=== PATIENT | male | born 1955 | race Caucasian/White ===

== ENCOUNTER 2020-12-23 09:12 | Outpatient (CLI) | payer MEDICARE, OTHER, SELFPAY ==
--- NOTE | 2020-12-23 09:23 | USCV_ITS ---
Dante Doshi Age: 65 Gender: M : 1955 Exam Date: 12/23/2020 09:37 Ordering Phys: Chrystal Chu MD Technologist: Deja Meza Exam Location: [facility] Indication: BILATERAL LOWER EXTREMITY EDEMA HISTORY: Lower extremity edema. PROCEDURES: Venous duplex imaging was performed in bilateral lower extremities. The following venous structures were evaluated: common femoral vein, profunda vein, proximal portion of the greater saphenous vein, superficial femoral vein, and the popliteal vein. In addition, the posterior tibial and peroneal trunk were evaluated. FINDINGS: Normal 2-D Doppler and augmentation and compressibility throughout the lower extremity venous structures. Additional imaging through the proximal calf veins also reveals no thrombus. Limited evaluation of the greater saphenous vein is patent with no thrombus.. CONCLUSIONS No evidence of right lower extremity DVT. No evidence of left lower extremity DVT. Attempted to contact providers office at time of exam multiple times with prelim, per request. Unable to establish contact due to prolonged hold times. Patient needed to leave and left department in stable condition., Oliverio Patterson MD (Electronically Signed) Final Date: 24 December 2020 09:56 S
== END 2020-12-23 09:13 | disposition home or self-care (01) ==
LOC: RAD 09:17
PROVIDERS: PCP Family Medicine; Visit Provider Internal Medicine Hematology & Oncology
DX: R60.0 Localized edema (principal)
CPT/HCPCS: 93970

== ENCOUNTER → 2022-07-18 13:09 | Outpatient (BNVA) | payer MEDICARE, OTHER, SELFPAY | PROVIDERS: PCP Family Medicine; Visit Provider Family Medicine | DX: I48.91 Unspecified atrial fibrillation (principal) | CPT/HCPCS: 80053; 84443; 85025 ==

== ENCOUNTER → 2022-09-14 11:02 | Outpatient (BNVA) | payer MEDICARE, OTHER, SELFPAY | PROVIDERS: PCP Family Medicine; Referring Provider Family Medicine; Visit Provider Anesthesiology Pain Medicine | DX: G89.29 Other chronic pain (principal); M54.50 Low back pain, unspecified; C61 Malignant neoplasm of prostate; M79.604 Pain in right leg; M79.605 Pain in left leg | CPT/HCPCS: 72110; 99204 ==

== ENCOUNTER 2022-10-11 14:37 | Outpatient (CLI) | payer MEDICARE, OTHER, SELFPAY ==
--- NOTE | 2022-10-11 15:15 | MR_ITS ---
WS: [id number] MRI LUMBAR SPINE WITH CONTRAST TECHNIQUE: Sagittal T1, T2 and STIR imaging. Axial T1 and T2 imaging. Post gadolinium imaging was obt ained. CLINICAL INFORMATION: M54.16 - Radiculopathy, lumbar region COMPARISON: None. FINDINGS: Mild lumbar curve. No acute compression. Disc space narrowing worse at L2-L3 with slight retrolisthes is L2 on L3. Focal sclerotic lesions in the L3 L4 and L5 vertebral bodies likely due to prior treated metastatic lesions. These are similar in appearance since the CT abdomen pelvis 2018. No significant associated edema or enhancement. These lesions could be further evaluated with bone scan to assess f or residual activity if suspicion for active disease. Recommend correlation PSA. L1-L2: Mild facet arthropathy. Spinal canal and foramen are patent. L2-L3: Disc osteophyte complex with endplate ridging. Moderate facet arthropathy. Moderate central ca nal stenosis with prominent epidural fat. Crowding of the cauda equina nerve rootlets. Mild to modera te facet arthropathy. RIGHT foraminal protrusion with moderate RIGHT foraminal narrowing. Impingement on the exiting RIGHT L2 nerve root. L3-L4: Mild disc bulging with mild central canal stenosis. Tiny annular fissure. L4-L5: Mild disc bulging with moderate canal stenosis. Moderate facet arthropathy. Prominent epidural fat contributes to thecal sac narrowing. Mild to moderate LEFT foraminal narrowing. RIGHT Foramen is patent. L5-S1: Mild annular bulging with osteophytic ridging. Mild LEFT foraminal narrowing. Moderate facet a rthropathy. Spinal canal is patent. Small LEFT facet effusion. Partially visualized LEFT renal cysts. MR/MR lumbar spine wo/w con [id number] IMPRESSION: 1. Mild disc bulging with osteophytic ridging L2-L3 results in moderate centra l canal stenosis with crowding of the cauda equina nerve rootlets. Prominent ep idural fat contributes to stenosis. 2. Moderate RIGHT L2-L3 foraminal narrowing impinges the exiting RIGHT L2 nerv e root. 3. Moderate central canal stenosis L4-L5 due to mild disc bulging in combinati on with facet arthropathy and prominent epidural fat. 4. Mild LEFT L4-L5 foraminal narrowing. 5. Moderate facet arthropathy worse at LEFT L5-S1 with small facet effusion. 6. Focal sclerotic nonenhancing lesions L3 L4 and L5 similar to the CT in 2018 . These likely represent prior treated metastatic blastic lesions. Bone scan co uld be performed in further evaluation if suspicion for active disease. Recomme nd correlation PSA.
[2022-10-11] MEDS: gadobenate dimeglumine 20 mL vial IV (15:41)
== END 2022-10-11 14:38 | disposition home or self-care (01) ==
PROVIDERS: PCP Family Medicine; Visit Provider Anesthesiology Pain Medicine
DX: M54.16 Radiculopathy, lumbar region (principal); M51.26 Other intervertebral disc displacement, lumbar region; M48.061 Spinal stenosis, lumbar region without neurogenic claudication; M47.817 Spondylosis without myelopathy or radiculopathy, lumbosacral region; G03.9 Meningitis, unspecified
CPT/HCPCS: 72158; A9577

== ENCOUNTER → 2022-11-14 08:56 | Outpatient (BNVA) | payer MEDICARE, OTHER, SELFPAY | PROVIDERS: PCP Family Medicine; Visit Provider Anesthesiology Pain Medicine | DX: G89.29 Other chronic pain (principal); M54.50 Low back pain, unspecified; C61 Malignant neoplasm of prostate | CPT/HCPCS: 99214 ==

== ENCOUNTER → 2022-11-29 11:48 | Outpatient (BNVA) | payer MEDICARE, OTHER, SELFPAY | PROVIDERS: PCP Family Medicine; Visit Provider Family Medicine | DX: I48.91 Unspecified atrial fibrillation (principal); C61 Malignant neoplasm of prostate; M54.50 Low back pain, unspecified; G89.29 Other chronic pain; I10 Essential (primary) hypertension | CPT/HCPCS: 80053; 85025 ==

== ENCOUNTER → 2022-12-15 08:32 | Outpatient (BNVA) | payer MEDICARE, OTHER, SELFPAY | PROVIDERS: PCP Family Medicine; Visit Provider Anesthesiology Pain Medicine | DX: G89.29 Other chronic pain (principal); M54.50 Low back pain, unspecified; C61 Malignant neoplasm of prostate | CPT/HCPCS: 99214 ==

== ENCOUNTER → 2023-01-03 13:41 | Outpatient (BNVA) | payer MEDICARE, OTHER, SELFPAY | PROVIDERS: PCP Family Medicine; Visit Provider Anesthesiology Pain Medicine | DX: G89.29 Other chronic pain (principal); M47.816 Spondylosis without myelopathy or radiculopathy, lumbar region | CPT/HCPCS: 64493; 64494; 64495; J3490 ==

== ENCOUNTER → 2023-01-16 13:37 | Outpatient (BNVA) | payer MEDICARE, OTHER, SELFPAY | PROVIDERS: PCP Family Medicine; Visit Provider Family Medicine | DX: R60.9 Edema, unspecified (principal); I10 Essential (primary) hypertension | CPT/HCPCS: 80048 ==

== ENCOUNTER 2023-01-23 07:43 | Outpatient (CLI) | payer MEDICARE, OTHER, SELFPAY ==
--- NOTE | 2023-01-23 08:00 | USCV_ITS ---
Dante Doshi Age: 67 Gender: M : 1955 Exam Date: 01/23/2023 08:04 Ordering Phys: Tony Shine MD Technologist: Jacob Delgado [place] [facility] [place]: edema BP: 112 / 86 HR: 93 Rhythm: Other Technical Quality: Adequate MEASUREMENTS (Male / Female) Normal Values 2D ECHO LV Ejection Fraction MOD 2C 77.6 % LV Ejection Fraction 2C AL 77.6 % LA Diameter 4.0 cm LA Width 3.2 cm LA Height 4.9 cm RA Width 4.2 cm RA Height 5.3 cm Aorta at Sinotubular Diameter 2.3 cm IVC Diameter 1.9 cm M-MODE Aortic Annulus Diameter 2.5 cm LA Ao Ratio MM 1.6 MV E Point Septal Separation 0.6 cm DOPPLER AV Peak Velocity 102.0 cm/s LVOT Peak Velocity 98.0 cm/s MV Peak Velocity 135.0 cm/s MV Area PHT 7.9 cm squared MV E' Velocity 59.5 cm/s Mitral E to MV E' Ratio 7.8 Mitral E to LV E' Lateral Ratio 8.8 Mitral E to LV E' Septal Ratio 7.0 TR Peak Velocity 202.1 cm/s TR Peak Gradient 16.3 mmHg TR Mean Velocity 158.5 cm/s TR Mean Gradient 11.6 mmHg TR Velocity Time Integral 47.4 cm Right Atrial Pressure 3.0 mmHg Pulmonary Artery Systolic Pressu 19.3 mmHg PV Peak Velocity 73.0 cm/s RV Acceleration Time 0.1 s RV Ejection Time 0.2 s RV AcT/ET 0.4 FINDINGS Left Ventricle Normal left ventricular size, systolic function and wall thickness, with no regional wall motion abnormalities. Left ventricular ejection fraction is estimated at 60 %. Rhythm precludes evaluation of diastolic function. Right Ventricle Normal right ventricular size and systolic function. Right ventricular systolic pressure 47 mmHg. Right Atrium Normal right atrial size. Left Atrium Mildly increased left atrial size. Mitral Valve Thickened mitral valve. Moderate mitral annular calcification. No mitral valve stenosis. No mitral valve regurgitation. Aortic Valve Aortic valve not well visualized. No aortic valve stenosis. No aortic valve regurgitation. Tricuspid Valve Structurally normal tricuspid valve. No tricuspid valve stenosis. Trace tricuspid valve regurgitation. Pulmonic Valve Pulmonic valve not well visualized. No pulmonary valve stenosis. Trace pulmonary valve regurgitation. Pericardium No pericardial effusion. Aorta Normal size aortic root and proximal ascending aorta. IVC Normal IVC dimension with >50% respiratory change of the inferior vena cava. CONCLUSIONS 1. Normal left ventricular size, systolic function and wall thickness, with no regional wall motion abnormalities. Left ventricular ejection fraction is estimated at 60 %. 2. Mild pulmonary hypertension with pulmonary artery pressure estimated at 47 mm Hg. 3. No prior similar studies to compare. Debbie Mondragon MD (Electronically Signed) Final Date: 27 January 2023 20:32 S
== END 2023-01-23 07:44 | disposition home or self-care (01) ==
PROVIDERS: PCP Family Medicine; Visit Provider Family Medicine
DX: I27.20 Pulmonary hypertension, unspecified (principal); R60.9 Edema, unspecified; I10 Essential (primary) hypertension; I48.91 Unspecified atrial fibrillation
CPT/HCPCS: 93306

== ENCOUNTER → 2023-01-31 12:31 | Outpatient (BNVA) | payer MEDICARE, OTHER, SELFPAY | PROVIDERS: PCP Family Medicine; Visit Provider Anesthesiology Pain Medicine | DX: G89.29 Other chronic pain (principal); M47.816 Spondylosis without myelopathy or radiculopathy, lumbar region | CPT/HCPCS: 64493; 64494; 64495; J3490 ==

== ENCOUNTER → 2023-02-21 08:24 | Outpatient (BNVA) | payer MEDICARE, OTHER, SELFPAY | PROVIDERS: PCP Family Medicine; Visit Provider Anesthesiology Pain Medicine | DX: G89.29 Other chronic pain; R60.9 Edema, unspecified; M48.061 Spinal stenosis, lumbar region without neurogenic claudication; M47.817 Spondylosis without myelopathy or radiculopathy, lumbosacral region | CPT/HCPCS: 99214 ==

== ENCOUNTER → 2023-03-09 13:13 | Outpatient (BNVA) | payer MEDICARE, OTHER, SELFPAY | PROVIDERS: PCP Family Medicine; Visit Provider Anesthesiology Pain Medicine | DX: M47.816 Spondylosis without myelopathy or radiculopathy, lumbar region (principal); G89.29 Other chronic pain | CPT/HCPCS: 64635; 64636; J1030 ==

== ENCOUNTER → 2023-04-19 13:27 | Outpatient (BNVA) | payer MEDICARE, OTHER, SELFPAY | PROVIDERS: PCP Family Medicine; Visit Provider Anesthesiology Pain Medicine | DX: M48.061 Spinal stenosis, lumbar region without neurogenic claudication (principal); G89.29 Other chronic pain; M47.817 Spondylosis without myelopathy or radiculopathy, lumbosacral region | CPT/HCPCS: 99214 ==

== ENCOUNTER → 2023-05-02 12:45 | Outpatient (BNVA) | payer MEDICARE, OTHER, SELFPAY | PROVIDERS: PCP Family Medicine; Visit Provider Anesthesiology Pain Medicine | DX: G89.29 Other chronic pain; M54.16 Radiculopathy, lumbar region | CPT/HCPCS: 62323; J1030 ==

== ENCOUNTER → 2023-05-11 10:40 | Outpatient (BNVA) | payer MEDICARE, OTHER, SELFPAY | PROVIDERS: PCP Family Medicine; Referring Provider Anesthesiology Pain Medicine; Visit Provider Orthopaedic Surgery | DX: M54.50 Low back pain, unspecified (principal); G89.29 Other chronic pain | CPT/HCPCS: 99204 ==

== ENCOUNTER → 2023-05-16 09:46 | Outpatient (BNVA) | payer MEDICARE, OTHER, SELFPAY | PROVIDERS: Visit Provider Anesthesiology Pain Medicine | DX: G89.29 Other chronic pain; R60.9 Edema, unspecified; M48.061 Spinal stenosis, lumbar region without neurogenic claudication; M47.817 Spondylosis without myelopathy or radiculopathy, lumbosacral region | CPT/HCPCS: 99214 ==

== ENCOUNTER 2023-05-25 08:13 | Outpatient (RCR) | payer MEDICARE, OTHER, SELFPAY | END 2023-06-08 23:59 | disposition home or self-care (01) | LOC: SPT 08:13 | PROVIDERS: PCP Family Medicine; Visit Provider Orthopaedic Surgery | DX: M54.50 Low back pain, unspecified (principal) | CPT/HCPCS: 97110; 97161 ==

== ENCOUNTER 2023-06-13 10:55 | Outpatient (RCR) | payer MEDICARE, OTHER, SELFPAY | END 2023-07-09 23:59 | disposition home or self-care (01) | LOC: SPT 10:55 | PROVIDERS: PCP Family Medicine; Visit Provider Orthopaedic Surgery | DX: M54.50 Low back pain, unspecified (principal) | CPT/HCPCS: 97110 ==

== ENCOUNTER → 2023-06-15 10:58 | Outpatient (BNVA) | payer MEDICARE, OTHER, SELFPAY | PROVIDERS: PCP Family Medicine; Visit Provider Anesthesiology Pain Medicine | DX: G89.29 Other chronic pain; M48.061 Spinal stenosis, lumbar region without neurogenic claudication; M47.817 Spondylosis without myelopathy or radiculopathy, lumbosacral region | CPT/HCPCS: 99214 ==

== ENCOUNTER → 2023-06-21 09:00 | Outpatient (BNVA) | payer MEDICARE, OTHER, SELFPAY | PROVIDERS: PCP Family Medicine; Visit Provider Physician Assistant | DX: M47.816 Spondylosis without myelopathy or radiculopathy, lumbar region (principal); M48.061 Spinal stenosis, lumbar region without neurogenic claudication | CPT/HCPCS: 72100; 99204 ==

== ENCOUNTER → 2023-09-11 13:52 | Outpatient (BNVA) | payer MEDICARE, OTHER, SELFPAY | PROVIDERS: PCP Family Medicine; Visit Provider Anesthesiology Pain Medicine | DX: G89.29 Other chronic pain; R60.9 Edema, unspecified; M48.061 Spinal stenosis, lumbar region without neurogenic claudication; M47.817 Spondylosis without myelopathy or radiculopathy, lumbosacral region | CPT/HCPCS: 99214 ==

== ENCOUNTER → 2023-09-28 14:24 | Outpatient (BNVA) | payer MEDICARE, OTHER, SELFPAY | PROVIDERS: PCP Family Medicine; Visit Provider Anesthesiology Pain Medicine | DX: M47.816 Spondylosis without myelopathy or radiculopathy, lumbar region (principal); G89.29 Other chronic pain | CPT/HCPCS: 64493; 64494; 64495; J3490 ==

== ENCOUNTER 2023-10-09 16:11 | Outpatient (CLI) | payer MEDICARE, OTHER, SELFPAY ==
--- NOTE | 2023-10-09 16:22 | XR_ITS ---
WS: [email or web address] Examination: [place] [id number] Reason for Exam: rt shoulder pain Date: 10/09/2023 Comparison: None. Findings: I see no destruction or displaced fracture of the right clavicle. Impression: No displaced fracture of the right clavicle is appreciated.
--- NOTE | 2023-10-09 16:22 | XR_ITS ---
WS: [email or web address] Examination: XR shoulder RT min 2V* [id number] Reason for Exam: rt shoulder pain Date: October 09, 2023 Comparison: None. Findings: The glenohumeral joint is intact without dislocation. No displaced fracture is identified. Mild AC joint degenerative changes are present. Impression: No acute bony abnormalities identified.
== END 2023-10-09 16:12 | disposition home or self-care (01) ==
LOC: RAD 16:14
PROVIDERS: PCP Family Medicine; Visit Provider Family Medicine
DX: M25.511 Pain in right shoulder (principal)
CPT/HCPCS: 73000; 73030

== ENCOUNTER → 2023-10-24 09:37 | Outpatient (BNVA) | payer MEDICARE, OTHER, SELFPAY | PROVIDERS: PCP Family Medicine; Visit Provider Anesthesiology Pain Medicine | DX: S43.109A Unspecified dislocation of unspecified acromioclavicular joint, initial encounter (principal); G89.29 Other chronic pain; R60.9 Edema, unspecified; M48.061 Spinal stenosis, lumbar region without neurogenic claudication; M47.817 Spondylosis without myelopathy or radiculopathy, lumbosacral region; X58.XXXA Exposure to other specified factors, initial encounter | CPT/HCPCS: 99215 ==

== ENCOUNTER 2023-11-06 10:41 | Outpatient (CLI) | payer MEDICARE, OTHER, SELFPAY ==
--- NOTE | 2023-11-06 11:00 | CT_ITS ---
WS: [id number] CT chest w con* [id number] HISTORY: S43.109A - Unspecified dislocation of unspecified acromio... TECHNIQUE: Axial imaging performed through the thorax. Coronal and sagittal reformats are submitted. All CT scans at [facility] use at least one of these dose optimization techniques: automated exposure control; mA and/or kV adjustment per patient size (includes targeted exams where dose is mat ched to clinical indication); or iterative reconstruction. CONTRAST: Omnipaque 350; 100 mL IV. DLP: 724.92 mGy.cm COMPARISON: None available. Lungs and central airway: Mild dependent changes in the lower lung kemp and in the lingula. Benign granuloma LEFT upper lobe. No mass or pneumonia. Pleura: Normal. No pleural effusion. Heart and pericardium: Mild cardiomegaly. No pericardial effusion. Coronary artery calcification. Mediastinum and dodie: Small mediastinal and hilar lymph nodes. Lymph nodes do not fit criteria for ad enopathy. Diffuse mild esophageal wall circumferential thickening beginning at the level of the fatmata a. No obstruction. No mass identified. Vessels: Atherosclerosis aorta. Normal size pulmonary artery. Chest wall and lower neck: Marker placed in the RIGHT supraclavicular region in the area of pain and nodularity. Acute, nonhealed fracture involving the RIGHT clavicular head with mild displacement. No adjacent hematoma. No sternal fracture. No rib fracture. Upper abdomen: Mild nodularity LEFT adrenal gland. Nodule measures 1.5 cm. Slightly increased in size since 2018. Osseous structures: RIGHT scoliosis thoracic spine. CT/CT chest w con* [id number] IMPRESSION: 1. Palpable area along the inferior RIGHT neck corresponds to a nonhealed, mi nimally displaced RIGHT clavicular head fracture. 2. No adjacent rib fractures. 3. Mild circumferential esophageal thickening beginning at the level of the ca jim. No mass identified. Suspect esophagitis. 4. No pneumonia.
[2023-11-06 11:28] LABS: Blood Urea Nitrogen 18 mg/dL (8-23); Glomerular Filtration Rate 83.4 mL/min (90-130)
[2023-11-06] MEDS: iohexol 350 mg/mL 500 mL Btl (per mL) IV (11:33)
== END 2023-11-06 10:42 | disposition home or self-care (01) ==
LOC: RAD 10:42
PROVIDERS: PCP Family Medicine; Visit Provider Anesthesiology Pain Medicine
DX: S43.101A Unspecified dislocation of right acromioclavicular joint, initial encounter (principal); S42.011A Anterior displaced fracture of sternal end of right clavicle, initial encounter for closed fracture; X58.XXXA Exposure to other specified factors, initial encounter
CPT/HCPCS: 71260; 82565; 84520; Q9967

== ENCOUNTER → 2023-11-08 12:40 | Outpatient (BNVA) | payer MEDICARE, OTHER, SELFPAY | PROVIDERS: PCP Family Medicine; Visit Provider Anesthesiology Pain Medicine | DX: M47.816 Spondylosis without myelopathy or radiculopathy, lumbar region (principal); G89.29 Other chronic pain; R60.9 Edema, unspecified; M48.061 Spinal stenosis, lumbar region without neurogenic claudication; C61 Malignant neoplasm of prostate | CPT/HCPCS: 64635; 64636; 99214; J1010 ==

== ENCOUNTER → 2023-11-14 14:22 | Outpatient (BNVA) | payer MEDICARE, OTHER, SELFPAY | PROVIDERS: PCP Family Medicine; Visit Provider Orthopaedic Surgery | DX: S42.017A Nondisplaced fracture of sternal end of right clavicle, initial encounter for closed fracture (principal); X58.XXXA Exposure to other specified factors, initial encounter | CPT/HCPCS: 99203 ==

== ENCOUNTER → 2023-12-05 08:49 | Outpatient (BNVA) | payer MEDICARE, OTHER, SELFPAY | PROVIDERS: PCP Family Medicine; Visit Provider Anesthesiology Pain Medicine | DX: G89.29 Other chronic pain; R60.9 Edema, unspecified; M48.061 Spinal stenosis, lumbar region without neurogenic claudication; M47.816 Spondylosis without myelopathy or radiculopathy, lumbar region; M47.817 Spondylosis without myelopathy or radiculopathy, lumbosacral region | CPT/HCPCS: 99214 ==

== ENCOUNTER → 2023-12-26 12:58 | Outpatient (BNVA) | payer MEDICARE, OTHER, SELFPAY | PROVIDERS: PCP Family Medicine; Visit Provider Orthopaedic Surgery | DX: S42.017A Nondisplaced fracture of sternal end of right clavicle, initial encounter for closed fracture (principal); X58.XXXA Exposure to other specified factors, initial encounter | CPT/HCPCS: 73000; 99214 ==

== ENCOUNTER 2024-02-12 13:34 | Inpatient (IN) | payer MEDICARE, OTHER, SELFPAY ==
[2024-02-12] VITALS (21 sets, daily range): BP systolic 96–136; BP diastolic 46–107; PULSE 85–141; RESP 16–28; TEMP 36.6; O2SAT 76–95; BMI 33.3
--- NOTE | 2024-02-12 14:38 | CT_ITS ---
WS: [id number] CT CHEST, ABDOMEN AND PELVIS WITH CONTRAST HISTORY: TRAUMA TECHNIQUE: Contiguous 5 mm axial imaging performed through the chest, abdomen and pelvis with IV cont rast, oral contrast has not been provided. Coronal and sagittal reformats chest. Coronal and sagittal reformats through the abdomen and pelvis. All CT scans at [facility] use at least one of the se dose optimization techniques: automated exposure control; mA and/or kV adjustment per patient size (includes targeted exams where dose is matched to clinical indication); or iterative reconstruction. CONTRAST: Omnipaque 350; 100 mL IV. DLP: 1750.08 mGy.cm COMPARISON: 11/06/2023 Significant artifact through the chest and abdomen due to patient's arm placement. Chest CT: Mild breathing motion artifact. No pulmonary contusion or laceration. No pneumothorax. Mild dependent changes in the lower lung kemp. No pericardial or pleural effusions. Mild biatrial enlar gement. No mediastinal or hilar adenopathy. Thoracic aorta with mild atherosclerosis. No aortic injur y. Normal size pulmonary artery. Small hiatal hernia. No visible chest wall contusion or hematoma. Co ntinued changes in the head of the RIGHT clavicle which was seen on 11/06/2023 thought to be a fractur e. Nondisplaced RIGHT lateral sixth rib fracture. Abdomen CT: Significant artifact through the upper abdomen. Liver appears intact. Spleen appears inta ct although there is artifact. Negative gallbladder. Negative pancreas. Normal RIGHT adrenal gland. S table 12 mm nodule LEFT adrenal gland. Indeterminate for mass in the LEFT kidney measuring 2.2 cm. Th ere is an additional smaller similar mass in the LEFT kidney. Atherosclerosis aorta. No aneurysm. No mesenteric injury. No GI tract obstruction or wall thickening. Pelvic CT: No free fluid. Normally distended urinary bladder. No adenopathy. Advanced degenerative ch anges in the thoracic and lumbar spines. Scoliosis. No fractures. CT/CT chest abdpel w/*[id number] IMPRESSION: 1. No thoracic or abdominal aortic injury. 2. No pneumothorax or pulmonary contusion. 3. Quality of study is compromised by motion artifact and artifact from the pa tient's arm position. 4. Nondisplaced RIGHT lateral acute sixth rib fracture. 5. No mesenteric injury. 6. No visceral organ injury identified taking into consideration the amount of artifact. 7. Reidentified is a destructive changes involving the head of the RIGHT clavi josue which were described on 11/06/2023. Thought to be healing fracture. There peck s been progression of destruction therefore the possibility of chronic osteomye litis or sternoclavicular joint arthropathy should also be considered. 8. Indeterminate LEFT renal masses. The largest at 2.2 cm. These may be cysts or solid masses. This can be further evaluated by ultrasound after patient's in jury from the recent trauma resolves.
--- NOTE | 2024-02-12 14:38 | ECG_ITS ---
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 Measurements Intervals [place] Rate: 107 P: 0 DC: 0 QRS: 31 QRSD: 81 T: 64 QT: 347 QTc: 464 Interpretive Statements ATRIAL FIBRILLATION WITH RAPID VENTRICULAR RESPONSE No previous ECG available for comparison Electronically Signed On 02-13-2024 7:51:38 CDT by Eleno Stapleton M.D. [id number] f
--- NOTE | 2024-02-12 14:38 | CT_ITS ---
WS: [id number] CT CERVICAL SPINE HISTORY: TRAUMA TECHNIQUE: Contiguous 2.0 mm axial imaging performed through the entire cervical spine. Sagittal and coronal reformats also performed. All CT scans at [facility] use at least one of these dose o ptimization techniques: automated exposure control; mA and/or kV adjustment per patient size (include s targeted exams where dose is matched to clinical indication); or iterative reconstruction. DLP: 2596.38 mGy.cm COMPARISON: None available. Reversal of the normal cervical lordosis centered at C4. Disc spaces are well narrowed and desiccated . Craniocervical junction is normal. Facet joints are normally aligned. Lateral masses of C1 and C2 a re aligned. The odontoid is intact. Bones are osteopenic. Bilateral facet joint arthropathy and foraminal narrowing. No central stenosis. Mild to moderate fora rom stenosis throughout the cervical spine. CT/CT cervical spin wo con* [id number] IMPRESSION: 1. No acute cervical spine fracture. 2. Degenerative facet joint arthropathy and foraminal stenosis at multiple lev els.
--- NOTE | 2024-02-12 14:38 | CT_ITS ---
WS: [id number] CT HEAD NONCONTRAST HISTORY: TRAUMA TECHNIQUE: Contiguous axial imaging performed through the brain in 2.5 mm imaging. Bone and soft tiss ue windows. Sagittal and coronal reformats reviewed. All CT scans at [facility] use at least one of these dose optimization techniques: automated exposure control; mA and/or kV adjustment per pa tient size (includes targeted exams where dose is matched to clinical indication); or iterative recon struction. DLP: 2596.38 mGy.cm COMPARISON: None available. No acute intracranial hemorrhage, midline shift or mass effect. Mild atrophy and mild small vessel disease. Prior LEFT cerebellar infarct. There is now volume loss. Ventricles: Normal size with no hydrocephalus. Paranasal sinuses: As visualized are clear. Mastoid air cells: Well pneumatized. Calvarium and scalp: No skull fracture. Possible nasal bone fracture. Mild soft tissue contusion over the LEFT frontal bone. Additional contusion continues over the LEFT orbit and globe. CT/CT head wo con* [id number] IMPRESSION: 1. No acute intracranial hemorrhage or edema. 2. Mild atrophy and small vessel ischemic disease. 3. Remote LEFT cerebellar infarct. 4. Soft tissue contusion over the LEFT frontal bone and orbit. Possible nasal bone fracture. Facial bone CT to follow.
--- NOTE | 2024-02-12 14:38 | XRR_ITS ---
PROCEDURE INFORMATION: Exam: XR Chest Exam date and time: 02/12/2024 2:39 PM Age: 68 years old Clinical indication: Cough and dyspnea; Additional info: Dyspnea/cough TECHNIQUE: Imaging protocol: Radiologic exam of the chest. Views: 1 view. COMPARISON: CT chest w con* [id number] 11/06/2023 11:29 AM FINDINGS: Lungs: Left lower lobe infiltrate. Pleural spaces: Unremarkable. No pleural effusion. No pneumothorax. Heart/Mediastinum: Unremarkable. No cardiomegaly. Bones/joints: Unremarkable. XR/XR chest 1V portable [id number] IMPRESSION: Left lower lobe infiltrate.
[2024-02-12 15:04] LABS: ABG PCO2 55.6 mmHg (35-45); ABG PH Result 7.38 (7.35-7.45); Alveolar-Arterial Oxygen Gradi 22.6 mmHg (5-10); Arterial Blood Gas Hematocrit 47.9 % (42-52); Base Excess ABG 5.5 mmol/L (-2.0-2.0); Blood Gas Operator Identificat AMH; Blood Gas Sample Site Radial, left; Blood Gas Sample Type Arterial; Carboxyhemoglobin 4.5 %THgb (0.4-20.1); HCO3 ABG 32.5 mmol/L (22-26); HGB O2 Sat 89.6 % (95-100); Ionized Calcium Level - ABG 1.2 mmol/L (1.1-1.4); Oxygen Device NC; Oxygen Saturation ABG 93.8; PO2 ABG 72.8 mmHg (80.0-100.0); PO2 FiO2 Ratio Arterial Blood 165; Total Hemoglobin 15.6 g/dL (14-18)
[2024-02-12 15:04] LABS: Basophils % 0.2 %; Eosinophils % 0.2 %; Hematocrit 49.2 % (37-53); Mean Corpuscular HGB Conc 32.5 g/dL (30-55); Mean Corpuscular Hemoglobin 32.3 pg (27-33); Mean Corpuscular Volume 99.4 fl (82-101); Mean Platelet Volume 10.3 fL (7.4-10.4); Monocytes # 0.9 10^3/uL (0.2-0.9); Monocytes % 9.5 %; Neutrophils # 7.48 10^3/uL (1.8-7.7); Neutrophils % 78.9 %; Nucleated Red Blood Cells % 0 %; Platelet Count 227 10^3/cmm (157-399); Red Blood Count 4.95 10^6/uL (3.85-5.65); Red Cell Distribution Width 14.4 % (12.1-15.1); White Blood Count 9.48 10^3/uL (3.29-11.43)
--- NOTE | 2024-02-12 15:04 | CT_ITS ---
WS: [id number] CT FACIAL BONES HISTORY: trauma TECHNIQUE: Images obtained from the supraorbital location through the mandible. Soft tissue and bone windows are reviewed. Coronal and sagittal reformats have also been submitted. DLP: 2596.[address] scans at [facility] use at least one of these dose optimization techniques: automated e xposure control; mA and/or kV adjustment per patient size (includes targeted exams where dose is matc hed to clinical indication); or iterative reconstruction. COMPARISON: None available. Motion artifact. Minimally displaced bilateral nasal bone fractures. Zygomatic arches are intact. No air-fluid levels within the sinuses. Mandibular condyles remain intact. Mild soft tissue contusion centered over the R IGHT frontal bone over the orbit and globe and the nasal bones. Upper cervical spine is negative. There are degenerative changes with reversal of the normal curvatur e. Craniocervical junction appears appropriate. CT/CT facial bones wo con* [id number] IMPRESSION: 1. Bilateral nasal bone fractures. 2. No zygomatic fracture. 3. Soft tissue contusions centered over the LEFT frontal bone continuing over the LEFT orbit and globe.
[2024-02-12 15:21] LABS: Alanine Aminotransferase 13 U/L (0-41); Albumin Level 3.8 g/dL (3.5-5.2); Alkaline Phosphatase 111 U/L (40-130); Anion Gap 15.6 (5-19); Aspartate Amino Transferase 23 U/L (0-40); Blood Urea Nitrogen 17 mg/dL (8-23); Calcium 9.2 mg/dL (8.5-10.5); Carbon Dioxide 30 mmol/L (22-29); Chloride 93 mmol/L (98-107); Globulin 3.6 g/dL (1.3-4.6); Glomerular Filtration Rate 133.2 mL/min (90-130); Glucose 131 mg/dL (65-115); Osmolality Calculated 281 mOsm/kg (285-295); Potassium 4.6 mmol/L (3.5-5.1); Sodium 134 mmol/L (136-145); Total Bilirubin 0.7 mg/dL (0.15-1.2); Total Protein 7.4 g/dL (6.6-8.7)
[2024-02-12] MEDS: iohexol 350 mg/mL 500 mL Btl (per mL) IV ×2 (15:24→16:52)
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
--- NOTE | 2024-02-12 16:17 | ECG_ITS ---
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 Measurements Intervals [place] Rate: 105 P: 0 TX: 0 QRS: 16 QRSD: 82 T: 60 QT: 351 QTc: 465 Interpretive Statements ATRIAL FIBRILLATION WITH RAPID VENTRICULAR RESPONSE Compared to ECG 02/12/2024 14:39:43 No significant changes Electronically Signed On 02-13-2024 7:51:27 CDT by Eleno Stapleton M.D. [id number] f
[2024-02-12] MEDS: ondansetron 2 mg/ML SDV 2 mL 4 MG IVP (16:20)
[2024-02-12] MEDS: morphine 4 mg/mL SDV 1 mL IVP (16:21)
--- NOTE | 2024-02-12 16:25 | CTR_ITS ---
PROCEDURE INFORMATION: Exam: CTA Chest With Contrast Exam date and time: 02/12/2024 4:38 PM Age: 68 years old Clinical indication: Dyspnea; Additional info: Dyspnea/ tachycardia TECHNIQUE: Imaging protocol: Computed tomographic angiography of the chest with contrast. Exam focused on the arteries. 3D rendering (Not supervised by radiologist): MIP and/or 3D reconstructed images were created by the technologist. Radiation optimization: All CT scans at this facility use at least one of these dose optimization techniques: automated exposure control; mA and/or kV adjustment per patient size (includes targeted exams where dose is matched to clinical indication); or iterative reconstruction. Contrast material: OMNI 350; Contrast volume: 82 ml; Contrast route: INTRAVENOUS (IV); COMPARISON: CT chest abdpel w/*[id number] 02/12/2024 3:18 PM RADIATION DOSE METRICS: Total DLP (mGy-cm): 497 FINDINGS: Pulmonary arteries: Normal. No pulmonary emboli. Aorta: Unremarkable. No aortic aneurysm. No aortic dissection. Lungs: Focal lingular infiltrate. Pleural spaces: Unremarkable. No pneumothorax. No pleural effusion. Heart: Unremarkable. No cardiomegaly. No pericardial effusion. Coronary arteries: Coronary artery calcifications. Lymph nodes: Minimal prominence of mediastinal lymph nodes. Spleen: Calcified splenic granulomata. Kidneys and ureters: Cystic lesions in the left kidney which is not warrant further surveillance. Bones/joints: Degenerative changes in the thoracic spine. [place] rightward upper thoracic scoliosis. Soft tissues: Unremarkable. CT/CT angio chest PE protcl [id number] IMPRESSION: No evidence for pulmonary arterial embolism. Focal lingular infiltrate. COMMENTS: Consistent with the [place] [employer]'s Incidental Findings Committee white paper (J Am Daniel Radiol 2018): Any incidental renal lesion less than 1 cm or classified as too small to characterize, or any incidental cystic renal lesion characterized as simple-appearing, is likely benign. No follow-up imaging is recommended for these lesions per consensus recommendations based on imaging criteria.
--- NOTE | 2024-02-12 17:00 | ECG_ITS ---
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 Measurements Intervals [place] Rate: 137 P: 0 OR: 0 QRS: 11 QRSD: 86 T: 58 QT: 303 QTc: 459 Interpretive Statements ATRIAL FIBRILLATION WITH RAPID VENTRICULAR RESPONSE MINIMAL ST DEPRESSION [0.025+ mV ST DEPRESSION] Compared to ECG 02/12/2024 16:17:39 ST (T wave) deviation now present Electronically Signed On 02-13-2024 7:50:52 CDT by Eleno Stapleton M.D. [id number]
[2024-02-12 17:32] LABS: Troponin(5th) Baseline 11 ng/L (0-15)
[2024-02-12] MEDS: methylPREDNISolone sod succ 125 mg/2 mL INJ IVP (17:34)
[2024-02-12] MEDS: dilTIAZem 100 MG in sodium chloride 0.9% (add-van) 100 ML IV (17:34)
[2024-02-12 17:44] LABS: ABG PH Result 7.28 (7.35-7.45); Alveolar-Arterial Oxygen Gradi 2.2 mmHg (5-10); Arterial Blood Gas Hematocrit 48.6 % (42-52); Blood Gas Allen Test Pos; Blood Gas Operator Identificat CAK; Blood Gas Sample Site Radial, left; Blood Gas Sample Type Arterial; HCO3 ABG 33.5 mmol/L (22-26); HGB O2 Sat 72.3 % (95-100); Ionized Calcium Level - ABG 1.2 mmol/L (1.1-1.4); Methemoglobin 0.1 % (0.4-1.5); Oxygen Device NC; Oxygen Saturation ABG 75.4; PO2 ABG 48.2 mmHg (80.0-100.0); Potassium Level - ABG 4.5 mmol/L (3.5-5.0); Total Hemoglobin 15.9 g/dL (14-18)
[2024-02-12 17:45] LABS: ABG PCO2 70.9 mmHg (35-45)
[2024-02-12] MEDS: ipratropium-albuterol 3 mL Neb INHALATION ×2 (17:45→20:07)
[2024-02-12 17:47] LABS: Troponin 5 2HR 11.96 ng/L (0-15); Troponin 5 2HR Delta 0.96 ABS# (0-10)
[2024-02-12 17:56] LABS: NT Pro B Type Natriuretic Pept 1482 pg/mL (0-125)
[2024-02-12] MEDS: cefTRIAXone 1,000 mg SDV 1000 MG IVP (18:05)
[2024-02-12] MEDS: azithromycin 500 MG in sodium chloride 0.9% 250 ML 250 MG IV (18:07)
[2024-02-12 18:21] LABS: Lactic Sepsis W/Reflex 1.6 mmol/L (0.5-2.2)
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
--- NOTE | 2024-02-12 19:00 | ECG_ITS ---
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 Measurements Intervals [place] Rate: 95 P: 0 MO: 0 QRS: 11 QRSD: 87 T: 55 QT: 364 QTc: 460 Interpretive Statements ATRIAL FIBRILLATION Compared to ECG 02/12/2024 17:07:30 ST (T wave) deviation no longer present Electronically Signed On 02-13-2024 7:53:26 CDT by Eleno Stapleton M.D. [id number]
[2024-02-12] MEDS: FUROsemide 10 mg/mL SDV 2mL 20 MG IVP (20:14)
[2024-02-12] MEDS: digoxin 250 mcg/ml INJ 2 mL 500 MCG IVP (20:14)
[2024-02-12 20:32] LABS: ABG PH Result 7.24 (7.35-7.45); Arterial Blood Gas Hematocrit 47.6 % (42-52); Base Excess ABG 2.7 mmol/L (-2.0-2.0); Blood Gas Allen Test Pos; Blood Gas Sample Site Radial, right; Blood Gas Sample Type Arterial; PO2 ABG 69.8 mmHg (80.0-100.0)
[2024-02-12 20:33] LABS: Blood Gas Operator Identificat JB; Oxygen Device BIPAP; PO2 FiO2 Ratio Arterial Blood 126
[2024-02-12 20:35] LABS: ABG PCO2 77.4 mmHg (35-45)
[2024-02-12 21:03] LABS: Troponin 5 6HR 11.33 ng/L (0-15); Troponin 5 6HR Delta 0.33 ng/L (0-12)
[2024-02-12 21:22] LABS: Thyroid Stimulating Hormone 1.67 uIU/mL (0.27-4.20); Vitamin B12 300 pg/mL (232-1245)
[2024-02-12 22:17] LABS: Charge for UA Resulting for Rev
[2024-02-12 22:24] LABS: Bilirubin Urine Negative (Negative); Blood Urine 2+ (Negative); Glucose Urine UA Negative (Normal); Ketones Urine Negative (Negative); Leukocyte Esterase Urine Negative (Negative); Nitrate Urine Negative (Negative); Protein Urine Negative (Negative); Urine Appearance Clear (CLEAR); Urine Color Yellow (Yellow); Urobilinogen Urine 0.2 mg/dL (Negative); pH Urine 5.5 (5-7)
[2024-02-12 22:29] LABS: Bacteria Urine None Seen /hpf; Hyaline Casts Urine 5.77 /lpf; Squamous Epithelial Cell Urine 0-5 /hpf (0-5); WBC Urine 0-5 /hpf (0-5)
[2024-02-12 22:32] LABS: Specific Gravity, Urine 1.052 (1.005-1.030)
[2024-02-12 22:33] LABS: Add Urine Culture? Yes
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
[2024-02-12] MEDS: morphine IR 15 mg Tablet PO (23:00)
--- NOTE | 2024-02-12 23:00 | ECG_ITS ---
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 Measurements Intervals [place] Rate: 87 P: 0 ME: 0 QRS: 28 QRSD: 90 T: 81 QT: 366 QTc: 442 Interpretive Statements ATRIAL FIBRILLATION Compared to ECG 02/12/2024 19:17:18 No significant changes Electronically Signed On 02-13-2024 7:52:35 CDT by Eleno Stapleton M.D. [id number]
[2024-02-13] VITALS (15 sets, daily range): PULSE 83–101; RESP 18–23; O2SAT 89–96
[2024-02-13] MEDS: ipratropium-albuterol 3 mL Neb INHALATION ×4 (01:11→20:13)
[2024-02-13 02:41] LABS: ABG PH Result 7.23 (7.35-7.45); Arterial Blood Gas Hematocrit 48.2 % (42-52); Blood Gas Allen Test Pos; Blood Gas Operator Identificat JDB; Blood Gas Sample Site Radial, right; Blood Gas Sample Type Arterial; Blood Gas Tidal Volume 0.55; Oxygen Device BIPAP; PO2 ABG 79.9 mmHg (80.0-100.0); PO2 FiO2 Ratio Arterial Blood 145
[2024-02-13 02:42] LABS: ABG PCO2 82.9 mmHg (35-45)
--- NOTE | 2024-02-13 03:19 | PC.RESP ---
EPAP TO [address] ALCAZAR
--- NOTE | 2024-02-13 03:22 | PC.NURSE ---
Spoke with Dr. Chu regarding current patient condition and most recent ABG. Orders given to respiratory therapy to change bipap settings, and then obtain ABG in one hour following.
[2024-02-13 05:03] LABS: ABG PH Result 7.27 (7.35-7.45); Alveolar-Arterial Oxygen Gradi 29.4 mmHg (5-10); Base Excess ABG 5.1 mmol/L (-2.0-2.0); Blood Gas Allen Test Pos; Blood Gas Operator Identificat JDB; Blood Gas Sample Site Radial, right; Blood Gas Sample Type Arterial; Blood Gas Tidal Volume 0.55; HCO3 ABG 34.9 mmol/L (22-26); HGB O2 Sat 91.8 % (95-100); Ionized Calcium Level - ABG 1.2 mmol/L (1.1-1.4); Methemoglobin 0.1 % (0.4-1.5); Oxygen Device BIPAP; Oxygen Saturation ABG 93.8; PO2 FiO2 Ratio Arterial Blood 140; Potassium Level - ABG 4.7 mmol/L (3.5-5.0)
[2024-02-13 05:06] LABS: ABG PCO2 75.6 mmHg (35-45)
[2024-02-13 05:53] LABS: Basophils % 0.1 %; Hematocrit 48.4 % (37-53); Lymphocytes # 0.8 10^3/uL (0.8-4.8); Lymphocytes % 8.8 %; Mean Corpuscular HGB Conc 30.6 g/dL (30-55); Mean Corpuscular Hemoglobin 31.2 pg (27-33); Mean Corpuscular Volume 102.1 fl (82-101); Mean Platelet Volume 10.4 fL (7.4-10.4); Monocytes # 0.8 10^3/uL (0.2-0.9); Monocytes % 9.7 %; Neutrophils # 6.92 10^3/uL (1.8-7.7); Nucleated Red Blood Cells % 0 %; Platelet Count 217 10^3/cmm (157-399); Red Blood Count 4.74 10^6/uL (3.85-5.65); Red Cell Distribution Width 14.2 % (12.1-15.1); White Blood Count 8.54 10^3/uL (3.29-11.43)
[2024-02-13 06:22] LABS: Blood Urea Nitrogen 19 mg/dL (8-23); C Reactive Protein 85.5 mg/L (0.0-4.9); Carbon Dioxide 30 mmol/L (22-29); Chloride 95 mmol/L (98-107); Creatinine Clr Calc Pharmacy 110.7813; Glomerular Filtration Rate 111.5 mL/min (90-130); Glucose 142 mg/dL (65-115); Magnesium 2.2 mg/dL (1.7-2.3); Osmolality Calculated 287 mOsm/kg (285-295); Sodium 136 mmol/L (136-145)
[2024-02-13] MEDS: FUROsemide 10 mg/mL SDV 2mL 20 MG IVP ×2 (08:05→21:12)
[2024-02-13 08:17] LABS: ABG PH Result 7.32 (7.35-7.45); Alveolar-Arterial Oxygen Gradi 30.3 mmHg (5-10); Blood Gas Allen Test Pos; Blood Gas Operator Identificat CAK; Blood Gas Sample Site Radial, left; Blood Gas Sample Type Arterial; Ionized Calcium Level - ABG 1.2 mmol/L (1.1-1.4); Oxygen Device BIPAP
[2024-02-13 08:18] LABS: Arterial Blood Gas Hematocrit 46.7 % (42-52); Base Excess ABG 5.9 mmol/L (-2.0-2.0); Carboxyhemoglobin 1.3 %THgb (0.4-20.1); HCO3 ABG 34.6 mmol/L (22-26); HGB O2 Sat 92.7 % (95-100); Oxygen Saturation ABG 94.8; PO2 ABG 78.5 mmHg (80.0-100.0); PO2 FiO2 Ratio Arterial Blood 142; Potassium Level - ABG 4.5 mmol/L (3.5-5.0); Total Hemoglobin 15.2 g/dL (14-18)
[2024-02-13 08:20] LABS: ABG PCO2 67.3 mmHg (35-45)
[2024-02-13] MEDS: cefTRIAXone 1,000 MG in sodium chloride 0.9% (plus) 50 ML 100 MG IV (08:22)
[2024-02-13] MEDS: azithromycin 250 mg Tablet 500 MG PO (08:36)
[2024-02-13] MEDS: metoprolol succinate ER (24 HR) 100 mg Tablet PO ×2 (08:36→17:43)
[2024-02-13] MEDS: sennosides-docusate Tablet 1 TAB PO (08:38)
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
--- NOTE | 2024-02-13 09:57 | USCV_ITS ---
Dante Doshi Age: 68 Gender: M : 1955 Exam Date: 02/13/2024 11:44 Ordering Phys: Marc Lee MD Technologist: USR Exam Location: [facility] [place] Indication: bilat edema PROCEDURES: The venous duplex Doppler examination of both lower extremities was performed in the standard fashion. The following venous structures were evaluated: common femoral vein, profunda vein, proximal portion of the greater saphenous vein, superficial femoral vein, and the popliteal vein. In addition, the posterior tibial and peroneal trunk were evaluated. FINDINGS: Normal 2-D Doppler and augmentation and compressibility throughout the lower extremity venous structures. Additional imaging through the proximal calf veins also reveals no thrombus. Limited evaluation of the greater saphenous vein is patent with no thrombus. CONCLUSIONS No DVT bilateral lower extremities. Technically limited evaluatin of the veins, suboptimal detail. Dr. Felicia Caban DO (Electronically Signed) Final Date: 13 February 2024 14:46 S
[2024-02-13] MEDS: HYDROcodone-acetaminophen 5-325 mg Tablet 1 TAB PO (10:01)
--- NOTE | 2024-02-13 15:15 | PC.NURSE ---
1500 Patient on and off alternating bipap and high flow nasal canula all day. Patient asking to take bipap off, ask him to try to tolerate it for another hour and see how his ABG results are. HE agreed. Watching tv.
[2024-02-13 15:50] LABS: ABG PH Result 7.37 (7.35-7.45); Arterial Blood Gas Hematocrit 43.6 % (42-52); Base Excess ABG 8.4 mmol/L (-2.0-2.0); Blood Gas Allen Test Pos; Blood Gas Sample Type Arterial; HCO3 ABG 36.1 mmol/L (22-26); PO2 ABG 67.2 mmHg (80.0-100.0)
[2024-02-13 15:51] LABS: Blood Gas Operator Identificat MONRO; Blood Gas Sample Site Radial, left; Blood Gas Tidal Volume 0.55; Oxygen Device BIPAP; PO2 FiO2 Ratio Arterial Blood 149
[2024-02-13 15:52] LABS: ABG PCO2 62.5 mmHg (35-45)
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
--- NOTE | 2024-02-13 21:30 | PC.NURSE ---
Dr. Chu was contacted about the amiodarone drip maintenance dose of 0.5 mg/min for 18 hours per protocol being done. Patient was still in A-fib with inconsistent heart rates that ranged from 80-110. Dr. Chu ordered to keep amiodarone drip running at 0.5 mg/min.
[2024-02-14] VITALS (121 sets, daily range): BP systolic 95–142; BP diastolic 62–92; PULSE 84–124; RESP 14–42; TEMP 36.4–36.9; O2SAT 73–97; BMI 33.3
[2024-02-14] MEDS: ipratropium-albuterol 3 mL Neb INHALATION ×4 (02:24→19:55)
[2024-02-14 04:02] LABS: ABG PH Result 7.39 (7.35-7.45); Arterial Blood Gas Hematocrit 44.2 % (42-52); Blood Gas Allen Test Pos; Blood Gas Sample Site Radial, right; Blood Gas Sample Type Arterial; HCO3 ABG 37.5 mmol/L (22-26); Oxygen Device NC; PO2 ABG 66.5 mmHg (80.0-100.0)
[2024-02-14 05:14] LABS: Basophils % 0.1 %; Eosinophils % 0.1 %; Hematocrit 45.3 % (37-53); Lymphocytes # 1.7 10^3/uL (0.8-4.8); Lymphocytes % 17.5 %; Mean Corpuscular HGB Conc 31.1 g/dL (30-55); Mean Corpuscular Hemoglobin 31.5 pg (27-33); Mean Corpuscular Volume 101.3 fl (82-101); Mean Platelet Volume 10.5 fL (7.4-10.4); Monocytes # 1.2 10^3/uL (0.2-0.9); Monocytes % 11.7 %; Neutrophils # 6.95 10^3/uL (1.8-7.7); Neutrophils % 70.3 %; Nucleated Red Blood Cells % 0 %; Platelet Count 201 10^3/cmm (157-399); Red Blood Count 4.47 10^6/uL (3.85-5.65); Red Cell Distribution Width 14.3 % (12.1-15.1); White Blood Count 9.89 10^3/uL (3.29-11.43)
[2024-02-14 05:42] LABS: Anion Gap 13.7 (5-19); Blood Urea Nitrogen 21 mg/dL (8-23); Calcium 8.5 mg/dL (8.5-10.5); Carbon Dioxide 34 mmol/L (22-29); Chloride 96 mmol/L (98-107); Creatinine Clr Calc Pharmacy 110.7813; Glomerular Filtration Rate 133.2 mL/min (90-130); Glucose 150 mg/dL (65-115); Osmolality Calculated 294 mOsm/kg (285-295); Potassium 4.7 mmol/L (3.5-5.1); Sodium 139 mmol/L (136-145)
[2024-02-14] MEDS: FUROsemide 10 mg/mL SDV 2mL 20 MG IVP (07:59)
[2024-02-14] MEDS: azithromycin 250 mg Tablet 500 MG PO (08:51)
[2024-02-14] MEDS: cefTRIAXone 1,000 MG in sodium chloride 0.9% (plus) 50 ML 100 MG IV (08:52)
[2024-02-14] MEDS: metoprolol succinate ER (24 HR) 100 mg Tablet PO (08:52)
[2024-02-14] MEDS: sennosides-docusate Tablet 1 TAB PO (08:52)
[2024-02-14] MEDS: digoxin 250 mcg/ml INJ 2 mL IVP (09:17)
--- NOTE | 2024-02-14 11:19 | PC.SOCIAL ---
IMM updated IMM dated and initialed, copy given to patient and copy placed in chart.
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
[2024-02-14] MEDS: ENZALUTAMIDE 40 MG 160 EACH PO (12:59)
--- NOTE | 2024-02-14 14:45 | PC.NURSE ---
Patient transferred to [facility] with [facility] from [facility]. Personal belongings in patients room bedside with patient.
[2024-02-14] MEDS: metoprolol tartrate 25 mg Tablet PO ×2 (15:13→20:52)
[2024-02-14] MEDS: amiodarone 200 mg Tablet 400 MG PO (16:53)
[2024-02-14 19:25] LABS: Glucose Point of Care 123 mg/dL (70-110)
[2024-02-15] VITALS (20 sets, daily range): BP systolic 101–151; BP diastolic 63–91; PULSE 90–120; RESP 16–27; TEMP 36.5–37.1; O2SAT 83–98; BMI 33.1
[2024-02-15] MEDS: ipratropium-albuterol 3 mL Neb INHALATION ×4 (02:20→20:05)
[2024-02-15 04:19] LABS: Basophils % 0.2 %; Eosinophils % 0.5 %; Hematocrit 45.2 % (37-53); Lymphocytes # 1.1 10^3/uL (0.8-4.8); Mean Corpuscular HGB Conc 31.2 g/dL (30-55); Mean Corpuscular Hemoglobin 31.5 pg (27-33); Mean Corpuscular Volume 101.1 fl (82-101); Mean Platelet Volume 10.2 fL (7.4-10.4); Monocytes # 1.1 10^3/uL (0.2-0.9); Neutrophils # 6.58 10^3/uL (1.8-7.7); Neutrophils % 74.8 %; Nucleated Red Blood Cells % 0 %; Platelet Count 209 10^3/cmm (157-399); Red Blood Count 4.47 10^6/uL (3.85-5.65); Red Cell Distribution Width 14.1 % (12.1-15.1)
[2024-02-15 04:46] LABS: Alanine Aminotransferase 10 U/L (0-41); Albumin Level 3.2 g/dL (3.5-5.2); Alkaline Phosphatase 84 U/L (40-130); Anion Gap 12.1 (5-19); Aspartate Amino Transferase 13 U/L (0-40); Blood Urea Nitrogen 15 mg/dL (8-23); Calcium 8.7 mg/dL (8.5-10.5); Carbon Dioxide 35 mmol/L (22-29); Chloride 94 mmol/L (98-107); Creatinine Clr Calc Pharmacy 110.7813; Globulin 3.3 g/dL (1.3-4.6); Glomerular Filtration Rate 111.5 mL/min (90-130); Glucose 127 mg/dL (65-115); Osmolality Calculated 286 mOsm/kg (285-295); Potassium 4.1 mmol/L (3.5-5.1); Sodium 137 mmol/L (136-145); Total Bilirubin 0.6 mg/dL (0.15-1.2); Total Protein 6.5 g/dL (6.6-8.7)
[2024-02-15] MEDS: azithromycin 250 mg Tablet 500 MG PO (07:18)
[2024-02-15] MEDS: FUROsemide 20 mg Tablet 40 MG PO (07:18)
[2024-02-15] MEDS: sennosides-docusate Tablet 1 TAB PO (07:19)
[2024-02-15] MEDS: morphine IR 15 mg Tablet PO ×2 (07:19→21:23)
[2024-02-15] MEDS: amiodarone 200 mg Tablet 400 MG PO ×2 (07:19→16:22)
[2024-02-15] MEDS: potassium chloride ER 20 mEq Tablet PO (07:19)
[2024-02-15] MEDS: ENZALUTAMIDE 40 MG 160 EACH PO (07:21)
[2024-02-15] MEDS: metoprolol tartrate 25 mg Tablet PO ×2 (07:23→21:23)
[2024-02-15] MEDS: cefTRIAXone 1,000 MG in sodium chloride 0.9% (plus) 50 ML 100 MG IV (07:24)
[2024-02-15] MEDS: digoxin 125 mcg Tablet PO (08:49)
[2024-02-15] MEDS: fluticasone nasal spray 16gm Btl 1 SPRAY NASAL (08:49)
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
[2024-02-15] MEDS: HYDROcodone-acetaminophen 5-325 mg Tablet 1 TAB PO (13:31)
[2024-02-16] VITALS (14 sets, daily range): BP systolic 107–133; BP diastolic 64–99; PULSE 0–116; RESP 16–24; TEMP 36.4–36.6; O2SAT 90–96
[2024-02-16] MEDS: ipratropium-albuterol 3 mL Neb INHALATION ×2 (02:27→08:34)
[2024-02-16] MEDS: FUROsemide 20 mg Tablet 40 MG PO (07:16)
[2024-02-16] MEDS: metoprolol tartrate 25 mg Tablet PO (07:16)
[2024-02-16] MEDS: digoxin 125 mcg Tablet PO (07:17)
[2024-02-16] MEDS: amiodarone 200 mg Tablet 400 MG PO (07:17)
[2024-02-16] MEDS: azithromycin 250 mg Tablet 500 MG PO (07:17)
[2024-02-16] MEDS: HYDROcodone-acetaminophen 5-325 mg Tablet 1 TAB PO (07:17)
[2024-02-16] MEDS: sennosides-docusate Tablet 1 TAB PO (07:17)
[2024-02-16] MEDS: potassium chloride ER 20 mEq Tablet PO (07:18)
[2024-02-16] MEDS: cefTRIAXone 1,000 MG in sodium chloride 0.9% (plus) 50 ML 100 MG IV (07:18)
[2024-02-16] MEDS: ENZALUTAMIDE 40 MG 160 EACH PO (07:19)
[2024-02-16] MEDS: fluticasone nasal spray 16gm Btl 1 SPRAY NASAL (07:19)
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
[2024-02-16] MEDS: morphine IR 15 mg Tablet PO (10:23)
--- NOTE | 2024-02-16 11:44 | PC.SOCIAL ---
IMM Updated Updated pt on IMM. No questions voiced. Provided pt a copy. Initialed, dated, & timed copy in chart.
--- NOTE | 2024-02-16 13:38 | PC.NURSE ---
Patient discharged to home. Instruction provided regarding follow up needs, new medications and changes. Oxygen provided by [facility] prior to discharge. Discussed need for sleep study. Patient and spouse verbalized complete understanding. IV removed this am. Medications delivered to patient prior to discharge. Patient taken by wheelchair to private vehicle
== END 2024-02-16 13:41 | disposition home or self-care (01) | DRG 189 ==
LOC: ER 16:27 → ICU 17:45 → CSU 02-14 14:53
PROVIDERS: Student in an Organized Health Care Education/Training Program; Admitting Provider Internal Medicine; Emergency Provider Family Medicine; Visit Provider Internal Medicine
DX: J96.02 Acute respiratory failure with hypercapnia (principal); I50.33 Acute on chronic diastolic (congestive) heart failure; J18.9 Pneumonia, unspecified organism; S22.31XA Fracture of one rib, right side, initial encounter for closed fracture; J96.01 Acute respiratory failure with hypoxia; I11.0 Hypertensive heart disease with heart failure; C61 Malignant neoplasm of prostate; G89.29 Other chronic pain; M54.50 Low back pain, unspecified; I48.91 Unspecified atrial fibrillation; S42.011A Anterior displaced fracture of sternal end of right clavicle, initial encounter for closed fracture; S02.2XXA Fracture of nasal bones, initial encounter for closed fracture; N28.89 Other specified disorders of kidney and ureter; Z79.01 Long term (current) use of anticoagulants; V57.0XXA Driver of pick-up truck or van injured in collision with fixed or stationary object in nontraffic accident, initial encounter; Z79.82 Long term (current) use of aspirin
CPT/HCPCS: 36415; 36416; 36600; 51702; 70450; 70486; 71045; 71260; 71275; 72125; 74177; 80048; 80051; 80053; 81003; 81015; 82330; 82607; 82803; 82805; 82962; 83605; 83735; 83880; 84443; 84484; 85025; 86140; 86850; 86900; 87040; 87086; 93005; 93306; 93970; 94640; 94660; 94760; 96365; 96366; 96367; 96375; 99291; J0283; J0456; J0696; J1160; J1940; J2270; J2405; J2919; J3490; J7050; Q0144; Q9967

== ENCOUNTER 2024-03-06 12:31 | Outpatient (CLI) | payer MEDICARE, OTHER, SELFPAY | END 2024-03-06 12:32 | disposition home or self-care (01) | LOC: SLEEP 12:33 | PROVIDERS: PCP Family Medicine; Visit Provider Family Medicine | DX: G47.34 Idiopathic sleep related nonobstructive alveolar hypoventilation (principal) | CPT/HCPCS: 94762 ==

== ENCOUNTER 2024-03-30 17:36 | Inpatient (IN) | payer MEDICARE, OTHER, SELFPAY ==
[2024-03-30] VITALS (10 sets, daily range): BP systolic 117–135; BP diastolic 67–98; PULSE 105–132; RESP 16–28; TEMP 36.6–36.7; O2SAT 24–98
--- NOTE | 2024-03-30 17:58 | XRR_ITS ---
PROCEDURE INFORMATION: Exam: XR Chest Exam date and time: 03/30/2024 6:23 PM Age: 69 years old Clinical indication: Shortness of breath; Patient HX: SOB TECHNIQUE: Imaging protocol: Radiologic exam of the chest. Views: 1 view. COMPARISON: 1. CT angio chest PE protcl [id number] 02/12/2024 4:38 PM 2. CR XR chest 1V portable [id number] 02/12/2024 2:39 PM FINDINGS: Lungs: Mild interstitial prominence, similar compared to prior study, likely chronic lung change. No pulmonary consolidation. Upwm-[id number]-right basilar atelectasis and/or scarring. Pleural spaces: No pleural effusion or pneumothorax. Heart/Mediastinum: Borderline cardiomegaly. Bones/joints: Unremarkable. XR/XR chest 1V portable [id number] IMPRESSION: No acute cardiopulmonary disease.
--- NOTE | 2024-03-30 18:05 | ED_ITS ---
HPI - SOB/Dyspnea 2 General: Chief Complaint: Shortness of Breath/Dyspnea Stated Complaint: SOB Time Seen by Provider: 03/30/24 17:58 Source: patient Mode of arrival: ambulatory Limitations: no limitations History of Present Illness: HPI Narrative: 69-year-old male who states he been havi ng increasing shortness of breath especially over the last 3 to 4 days has also had cough congestion patient was admitted here in February for pneumonia states he is discharged on oxygen previously did not wear oxygen he states he has been able to decrease his oxygen to 2 L at home but has been requiring 6-7 again over the last week he is requiring 7 here he states he has been producing phlegm with his cough. He denies any chest pain. He does have a history of A-fib as well. Associated symptoms: Deny abdominal pain, chest pain, fever(s), nausea or vomiting Related Data Home Medications Medication Instructions Recorded Confirmed enzalutamide 40 mg tablet (Xtandi) 160 mg PO DAILY 07/18/22 03/26/24 goserelin 10.8 mg subcutaneous 10.8 mg SUBCUT ONCE 07/18/22 03/26/24 implant (Zoladex) calcium-vit B complx-FA ER 115 1 tab PO DAILY 09/14/22 03/26/24 mg-50 mg-0.4 mg tablet,extended release pyridoxine (vitamin B6) 100 mg 50 mg PO DAILY 09/14/22 03/26/24 tablet Previous Rx's Medication Instructions Recorded gabapentin 300 mg capsule 300 mg PO TID pain #90 caps 02/13/23 furosemide 20 mg tablet See Rx Instructions .Route 05/08/23 .COMPLEX #90 tabs potassium chloride 20 mEq 20 meq PO DAILY #90 tabs 08/02/23 tablet,extended release rivaroxaban 20 mg tablet (Xarelto) See Rx Instructions .Route 08/29/23 .COMPLEX #30 tabs albuterol sulfate 90 mcg/actuation 2 inh inhalation Q8H PRN shortness 02/16/24 aerosol inhaler of breath or wheezing #6.7 grams amiodarone 200 mg tablet (Pacerone) 400 mg (2 x 200 mg) PO DAILY #60 02/16/24 tabs digoxin 125 mcg (0.125 mg) tablet 125 mcg PO DAILY #30 tabs 02/16/24 lidocaine HCl 4 %-menthol 1 % 1 patch topical DAILY PRN pain #5 02/16/24 topical patch ea metoprolol tartrate 25 mg tablet 50 mg (2 x 25 mg) PO BID@0900,2100 02/16/24 #60 tabs Portable O2 concentrator #1 ea 02/27/24 nicotine 21 mg/24 hr daily 1 patch transdermal DAILY #28 ea 02/29/24 transdermal patch (Nicoderm CQ) doxycycline hyclate 100 mg capsule 100 mg PO BID #14 caps 03/26/24 prednisone 10 mg tablet 10 mg PO DAILY #5 tabs 03/26/24 hydrocodone 5 mg-acetaminophen 325 1 tab PO Q6H PRN pain 1 month #30 03/28/24 mg tablet tabs Allergies Allergy/AdvReac Type Severity Reaction Status Date / Time No Known Allergies Allergy Verified 03/30/24 17:52 Review of Systems 2 Const: Denies: fever(s), chills, body aches or change in appetite ENMT: Denies: throat pain or dental pain Card: Denies: chest pain Resp: Reports: dyspnea and productive cough GI: Denies: abdominal pain, nausea, vomiting or diarrhea Musc: Denies: neck pain or back pain Skin/Breast: Denies: rash Neuro: Denies: headache(s) PFSH ED 2 PFSH: Medical History Pneumonia Atrial fibrillation with rapid ventricular response Fracture of rib Acute respiratory failure with hypoxia and hypercapnia Acute respiratory failure New onset of congestive heart failure Clavicle fracture, sternal end Right shoulder pain Edema Chronic lumbar pain Nocturnal hypoxemia COPD (chronic obstructive pulmonary disease) Prostate cancer Hypertension Atrial fibrillation Social History Smoking and tobacco/nicotine status: never used tobacco/nicotine Physical Exam 2 Const: COMMON NORMALS: patient oriented x3 GENERAL APPEARANCE: in distress and ill appearing HENMT: COMMON NORMALS: normocephalic and atraumatic HEAD & SCALP: n ormocephalic and atraumatic Neck/C-Spine: COMMON NORMALS: full ROM and supple Chest: COMMONS NORMALS: normal inspection of the chest Resp: COMMON NORMALS: No retractions EFFORT & INSPECTION: Yes tachypneic and Yes respiratory distress AUSCULTATION: rhonchi and wheezes Cardio: RATE: tachycardic GI: COMMON NORMALS: Normal to inspection, nondistended, normoactive bowel sounds present, Soft to palpation, non-tender and no masses PALPATION: Yes Soft to palpation Extremity: COMMON NORMALS: normal to inspection and full ROM Neuro: COMMON NORMALS: patient oriented x3, moves all extremities and no focal motor deficits Psych: COMMON NORMALS: mental status grossly normal, Normal thought process present and cooperative THOUGHT PROCESS: Normal thought process present Skin: COMMON NORMALS: no rashes or lesions noted and no wounds GENERAL SKIN EXAM: no rashes or lesions noted Course 2 Vital Signs: Vital signs: Vital Signs Temperature 97.9 F 03/30/24 17:47 Pulse Rate 115 H 03/30/24 19:43 Respiratory Rate 24 H 03/30/24 19:43 Blood Pressure 127/98 03/30/24 19:43 Pulse Oximetry 24 L 03/30/24 19:43 Oxygen Delivery Me thod Nasal Cannula 03/30/24 19:43 Oxygen Flow Rate 6 03/30/24 19:43 MDM - SOB/Dyspnea Medical Decision Making Patient presents here with hypoxia likely COPD exacerbation he also is in A-fib with RVR he is requiring 6 L oxygen here to the hospitalist will admit no signs of pneumonia here. Medical Records I reviewed the patient's medical records. Lab Data I reviewed the patient's lab results. 03/30/24 18:11 03/30/24 18:11 Labs/Radiology: Radiology Impressions Chest X-Ray 03/30/24 17:58 IMPRESSION: No acute cardiopulmonary disease. Laboratory Results WBC 9.17 10^3/uL (3.29-11.43) 03/30/24 18:11 RBC 4.79 10^6/uL (3.85-5.65) 03/30/24 18:11 Hgb 15.00 g/dL (11.27-16.99) 03/30/24 18:11 Hct 49.1 % (37-53) 03/30/24 18:11 MCV 102.5 fl (82-101) H 03/30/24 18:11 MCH 31.3 pg (27-33) 03/30/24 18:11 MCHC 30.5 g/dL (30-55) 03/30/24 18:11 RDW 15.1 % (12.1-15.1) 03/30/24 18:11 Plt Count 260 10^3/cmm (157-399) 03/30/24 18:11 MPV 10.1 fL (7.4-10.4) 03/30/24 18:11 Neut % (Auto) 62.3 % 03/30/24 18:11 Lymph % (Auto) 25.3 % 03/30/24 18:11 [place] % (Auto) 10.9 % 03/30/24 18:11 Eos % (Auto) 0.8 % 03/30/24 18:11 Baso % (Auto) 0.4 % 03/30/24 18:11 Neut # (Auto) 5.71 10^3/uL (1.8-7.7) 03/30/24 18:11 Lymph # (Auto) 2.3 10^3/uL (0.8-4.8) 03/30/24 18:11 [place] # (Auto) 1.0 10^3/uL (0.2-0.9) H 03/30/24 18:11 Eos # (Auto) 0.1 10^3/uL (0.0-0.8) 03/30/24 18:11 Baso # (Auto) 0.0 10^3/uL (0.0-0.1) 03/30/24 18:11 Nucleated RBC % (auto) 0 % 03/30/24 18:11 Nucleated RBCs # 0.0 /100WBC 03/30/24 18:11 Specimen Type Arterial 03/30/24 18:14 Sample Site Brachial, left 03/30/24 18:14 ABG pH 7.37 (7.35-7.45) 03/30/24 18:14 ABG pCO2 67.5 mmHg (35-45) H* 03/30/24 18:14 ABG pO2 58.6 mmHg (80.0-100.0) L 03/30/24 18:14 ABG HCO3 39.0 mmol/L (22-26) H 03/30/24 18:14 ABG O2 Saturation 91.0 03/30/24 18:14 ABG Base Excess 10.4 mmol/L (-2.0-2.0) H 03/30/24 18:14 Jay Test Pos 03/30/24 18:14 A-a O2 Gradient 1.2 mmHg (5-10) L 03/30/24 18:14 Hematocrit 48.1 % (42-52) 03/30/24 18:14 Hgb O2 Saturation 85.5 % (95-100) L 03/30/24 18:14 Carboxyhemoglobin 5.1 %THgb (0.4-20.1) 03/30/24 18:14 Methemoglobin 0.9 % (0.4-1.5) 03/30/24 18:14 Total Hemoglobin 15.7 g/dL (14-18) 03/30/24 18:14 Sodium 137.0 mmol/L (131-143) 03/30/24 18:14 Potassium 4.2 mmol/L (3.5-5.0) 03/30/24 18:14 Glucose 101.0 mg/dL (70-115) 03/30/24 18:14 Ionized Calcium 1.2 mmol/L (1.1-1.4) 03/30/24 18:14 O2 Delivery Device Nc 03/30/24 18:14 O2 Liters/Min 6.0 % 03/30/24 18:14 Computer Systems Analyst ID Cak 03/30/24 18:14 Sodium 136 mmol/L (136-145) 03/30/24 18:11 Potassium 4.5 mmol/L (3.5-5.1) 03/30/24 18:11 Chloride 91 mmol/L (98-107) L 03/30/24 18:11 Carbon Dioxide 36 mmol/L (22-29) H 03/30/24 18:11 Anion Gap 13.5 (5-19) 03/30/24 18:11 BUN 28 mg/dL (8-23) H 03/30/24 18:11 Creatinine 0.8 mg/dL (0.7-1.2) 03/30/24 18:11 GFR Calculation Not Reportable 03/30/24 18:11 Glucose 98 mg/dL (65-115) 03/30/24 18:11 Calculated Osmolality 287 mOsm/kg (285-295) 03/30/24 18:11 Lactic Acid 1.3 mmol/L (0.5-2.2) 03/30/24 18:11 Calcium 9.3 mg/dL (8.5-10.5) 03/30/24 18:11 Total Bilirubin 0.3 mg/dL (0.15-1.2) 03/30/24 18:11 AST 15 U/L (0-40) 03/30/24 18:11 ALT 12 U/L (0-41) 03/30/24 18:11 Alkaline Phosphatase 123 U/L (40-130) 03/30/24 18:11 Troponin T Baseline 10 ng/L (0-15) 03/30/24 18:11 Troponin T 120 Minute 7.51 ng/L (0-15) 03/30/24 20:05 Delta Troponin T -2.49 ABS# (0-10) L 03/30/24 20:05 NT-Pro-B Natriuret Pep 384 pg/mL (0-125) H 03/30/24 18:11 Total Protein 7.1 g/dL (6.6-8.7) 03/30/24 18:11 Albumin 4.3 g/dL (3.5-5.2) 03/30/24 18:11 Globulin 2.8 g/dL (1.3-4.6) 03/30/24 18:11 Procalcitonin 0.05 ng/mL (0-0.5) 03/30/24 18:11 Urine Color Yellow (Yellow) 03/30/24 18:11 Urine Appearance Clear (CLEAR) 03/30/24 18:11 Urine pH 5 (5-7) 03/30/24 18:11 Ur Specific [place] 1.020 (1.005-1.030) 03/30/24 18:11 Urine Protein 1+ (Negative) H 03/30/24 18:11 Urine Glucose (UA) Norm (Normal) 03/30/24 18:11 Urine Ketones 1+ (Negative) H 03/30/24 18:11 Urine Blood Neg (Negative) 03/30/24 18:11 Urine Nitrate Negative (Negative) 03/30/24 18:11 Urine Bilirubin 1+ (Negative) H 03/30/24 18:11 Urine Urobilinogen 1 mg/dL (Negative) H 03/30/24 18:11 Ur Leukocyte Esterase Negative (Negative) 03/30/24 18:11 Urine RBC 0-4 /hpf (0-2) H 03/30/24 18:11 Urine WBC 0-4 /hpf (0-5) H 03/30/24 18:11 Ur Squamous Epith Cells 0-4 /hpf (0-5) H 03/30/24 18:11 Amorphous Sediment Not Reportable 03/30/24 18:11 Urine Bacteria Trace /hpf (NONE) 03/30/24 18:11 All radiology interpretation(s) finalized by discharge EKG Data EKG 1: I personally reviewed and interpreted this EKG as follows: EKG Interpretation Date: 03/30/24 EKG interpretation time: 18:09 Interpretation: afib with rvr hr [address] elevation qrs 93 qtc 404 Discharge Plan Discharge Patient Disposition: Admitted As Inpatient Clinical Impression: Acute respiratory failure with hypoxia, Atrial fibrillation with RVR Condition: Stable Prescriptions: No Action Xtandi 40 mg tablet 160 mg PO DAILY Zoladex 10.8 mg implant 10.8 mg SUBCUT ONCE Rx Instructions: every 3 months pyridoxine (vitamin B6) 100 mg tablet 50 mg PO DAILY calcium-vit B complx-FA 115-50-0.4 mg tablet extended release 1 tab PO DAILY doxycycline hyclate 100 mg capsule 100 mg PO BID Qty: 14 0RF prednisone 10 mg tablet 10 mg PO DAILY Qty: 5 0RF nicotine [Nicoderm CQ] 21 mg/24 hr patch 24 hour 1 patch transdermal DAILY Qty: 28 11RF gabapentin 300 mg capsule 300 mg PO TID Qty: 90 11RF furosemide 20 mg tablet See Rx Instructions .ROUTE .COMPLEX Qty: 90 3RF Dose Instruction: TAKE 1 TABLET BY MOUTH EVERY DAY Rx Instructions: TAKE 1 TABLET BY MOUTH EVERY DAY potassium chloride 20 mEq tablet extended release 20 meq PO DAILY Qty: 90 11RF Xarelto 20 mg tablet See Rx Instructions .ROUTE .COMPLEX Qty: 30 11RF Hold Instructions: Resume on 02/19/24. Dose Instruction: TAKE ONE TABLET BY MOUTH EVERY DAY with evening meal Rx Instructions: TAKE ONE TABLET BY MOUTH EVERY DAY with evening meal (DME) Portable O2 concentrator See Rx Instructions .Route .MEDSUPPLY Qty: 1 0RF Rx Instructions: 4l/m hydrocodone-acetaminophen 5-325 mg tablet 1 tab PO Q6H PRN (Reason: pain) 30 Days Qty: 30 0RF Pacerone 200 mg Tablet 400 mg PO DAILY Qty: 60 3RF digoxin 125 mcg (0.125 mg) Tablet 125 mcg PO DAILY Qty: 30 3RF metoprolol tartrate 25 mg Tablet 50 mg PO BID@0900,2100 Qty: 60 3RF albuterol sulfate 90 mcg/actuation HFA aerosol inhaler 2 inh inhalation Q8H PRN (Reason: shortness of breath or wheezing) Qty: 6.7 3RF lidocaine HCl-menthol 4-1 % adhesive patch,medicated 1 patch topical DAILY PRN (Reason: pain) Qty: 5 0RF Rx Instructions: may leave on area for up to 8 hrs Referrals: Tony Shine MD [Primary Care Provider] - Coding Level of Care Code ED Resource Specialist for Chg Simone
--- NOTE | 2024-03-30 18:09 | ECG_ITS ---
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 Measurements Intervals [place] Rate: 119 P: 0 MA: 0 QRS: 16 QRSD: 93 T: 30 QT: 333 QTc: 469 Interpretive Statements ATRIAL FIBRILLATION WITH RAPID VENTRICULAR RESPONSE ABNORMAL RHYTHM ECG Compared to ECG 02/13/2024 00:48:23 No significant changes Electronically Signed On 03-30-2024 19:54:19 CDT by Raymond Mix M.D. [email or web address]
[2024-03-30] MEDS: methylPREDNISolone sod succ 125 mg/2 mL INJ IVP (18:13)
[2024-03-30] MEDS: ipratropium-albuterol 3 mL Neb INHALATION ×2 (18:13→23:57)
[2024-03-30 18:17] LABS: Basophils % 0.4 %; Eosinophils # 0.1 10^3/uL (0.0-0.8); Eosinophils % 0.8 %; Hematocrit 49.1 % (37-53); Lymphocytes # 2.3 10^3/uL (0.8-4.8); Lymphocytes % 25.3 %; Mean Corpuscular HGB Conc 30.5 g/dL (30-55); Mean Corpuscular Hemoglobin 31.3 pg (27-33); Mean Corpuscular Volume 102.5 fl (82-101); Mean Platelet Volume 10.1 fL (7.4-10.4); Monocytes % 10.9 %; Neutrophils # 5.71 10^3/uL (1.8-7.7); Neutrophils % 62.3 %; Nucleated Red Blood Cells % 0 %; Platelet Count 260 10^3/cmm (157-399); Red Blood Count 4.79 10^6/uL (3.85-5.65); Red Cell Distribution Width 15.1 % (12.1-15.1); White Blood Count 9.17 10^3/uL (3.29-11.43)
[2024-03-30 18:26] LABS: ABG PCO2 67.5 mmHg (35-45); ABG PH Result 7.37 (7.35-7.45); Alveolar-Arterial Oxygen Gradi 1.2 mmHg (5-10); Arterial Blood Gas Hematocrit 48.1 % (42-52); Base Excess ABG 10.4 mmol/L (-2.0-2.0); Blood Gas Allen Test Pos; Blood Gas Operator Identificat CAK; Blood Gas Sample Site Brachial, left; Blood Gas Sample Type Arterial; Carboxyhemoglobin 5.1 %THgb (0.4-20.1); HGB O2 Sat 85.5 % (95-100); Ionized Calcium Level - ABG 1.2 mmol/L (1.1-1.4); Methemoglobin 0.9 % (0.4-1.5); Oxygen Device NC; PO2 ABG 58.6 mmHg (80.0-100.0); Potassium Level - ABG 4.2 mmol/L (3.5-5.0); Total Hemoglobin 15.7 g/dL (14-18)
[2024-03-30 18:37] LABS: Add Urine Culture? No; Add Urine Microscopic? YES; Bacteria Urine TRACE /hpf; Bilirubin Urine 1+ (Negative); Blood Urine Neg (Negative); Glucose Urine UA Norm (Normal); Ketones Urine 1+ (Negative); Leukocyte Esterase Urine Negative (Negative); Nitrate Urine Negative (Negative); Protein Urine 1+ (Negative); RBC Urine 0-4 /hpf (0-2); Squamous Epithelial Cell Urine 0-4 /hpf (0-5); Urine Appearance Clear (CLEAR); Urine Color Yellow (Yellow); Urobilinogen Urine 1 mg/dL (Negative); WBC Urine 0-4 /hpf (0-5); pH Urine 5 (5-7)
[2024-03-30 18:40] LABS: Lactic Sepsis W/Reflex 1.3 mmol/L (0.5-2.2)
[2024-03-30 18:42] LABS: Troponin(5th) Baseline 10 ng/L (0-15)
[2024-03-30 18:52] LABS: NT Pro B Type Natriuretic Pept 384 pg/mL (0-125); Procalcitonin 0.05 ng/mL (0-0.5)
[2024-03-30 19:03] LABS: Alanine Aminotransferase 12 U/L (0-41); Albumin Level 4.3 g/dL (3.5-5.2); Alkaline Phosphatase 123 U/L (40-130); Anion Gap 13.5 (5-19); Aspartate Amino Transferase 15 U/L (0-40); Blood Urea Nitrogen 28 mg/dL (8-23); Calcium 9.3 mg/dL (8.5-10.5); Carbon Dioxide 36 mmol/L (22-29); Chloride 91 mmol/L (98-107); Creatinine Clr Calc Pharmacy 110.1115; Globulin 2.8 g/dL (1.3-4.6); Glucose 98 mg/dL (65-115); Osmolality Calculated 287 mOsm/kg (285-295); Potassium 4.5 mmol/L (3.5-5.1); Sodium 136 mmol/L (136-145); Total Bilirubin 0.3 mg/dL (0.15-1.2); Total Protein 7.1 g/dL (6.6-8.7)
--- NOTE | 2024-03-30 20:07 | ECG_ITS ---
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 Measurements Intervals [place] Rate: 119 P: 0 RI: 0 QRS: -9 QRSD: 98 T: 48 QT: 331 QTc: 467 Interpretive Statements ATRIAL FIBRILLATION WITH RAPID VENTRICULAR RESPONSE ABNORMAL RHYTHM ECG Compared to ECG 03/30/2024 18:09:26 No significant changes Electronically Signed On 03-31-2024 19:33:02 CDT by Raymond Mix M.D. [id number]
[2024-03-30 20:28] LABS: Troponin 5 2HR 7.51 ng/L (0-15); Troponin 5 2HR Delta -2.49 ABS# (0-10)
[2024-03-30] MEDS: dilTIAZem 100 MG in sodium chloride 0.9% (add-van) 100 ML IV (20:54)
[2024-03-30] MEDS: sodium chloride 0.9% 500 ML 999 ML IV (20:55)
[2024-03-30 21:01] LABS: Covid PCR NEGATIVE (Negative); Influenza A NEGATIVE (Negative); Influenza B NEGATIVE (Negative); Respiratory Syncytial Virus Ce NEGATIVE (Negative)
[2024-03-30 21:57] LABS: Digoxin 0.3 ng/mL (0.6-1.2)
--- NOTE | 2024-03-30 22:03 | P.HP_ITS ---
Providers/Chief Complaint 2 Admitting Physician: Kingston Leong MD Primary Care Provider: Tony Shine MD Chief Complaint: SOB History of Present Illness Dante Doshi is a 69 year old male with a past medical history of prostate cancer with bony metastasis, chronic pain, history of atrial fibrillation on Xarelto, history COPD, current smoker, who presents [facility] due to chest palpitations, shortness of breath, wheezing, lower extremity edema. Currently patient is on a Cardizem drip heart rates in the 120s, atrial fibrillation, he is alert, awake, following all commands, sitting up in the gurney, complaining of shortness of breath, he reports that he has been increasingly short of breath, having increased wheezing, productive cough, no chest pain but having increased palpitation he reports compliance with his A-fib medications, also reporting increased lower extreme edema, no calf pain, no calf swelling, no hemoptysis, Review of Systems 2 Const: Reports: fatigue and malaise; Denies: fever(s) or chills Card: Denies: chest pain Resp: Reports: dyspnea Medications/Allergies Home Medications Medication Instructions Recorded Confirmed Last Taken Type enzalutamide 40 mg tablet (Xtandi) 160 mg PO DAILY 07/18/22 03/30/24 02/12/24 History goserelin 10.8 mg subcutaneous 10.8 mg SUBCUT ONCE 07/18/22 03/26/24 Unknown History implant (Zoladex) calcium-vit B complx-FA ER 115 1 tab PO DAILY 09/14/22 03/30/24 02/12/24 History mg-50 mg-0.4 mg tablet,extended release pyridoxine (vitamin B6) 100 mg 50 mg PO DAILY 09/14/22 03/30/24 02/12/24 History tablet gabapentin 300 mg capsule 300 mg PO TID pain #90 caps 02/13/23 03/30/24 02/12/24 Rx furosemide 20 mg tablet See Rx Instructions .Route 05/08/23 03/30/24 02/12/24 Rx .COMPLEX #90 tabs potassium chloride 20 mEq 20 meq PO DAILY #90 tabs 08/02/23 03/30/24 02/12/24 Rx tablet,extended release rivaroxaban 20 mg tablet (Xarelto) See Rx Instructions .Route 08/29/23 03/26/2424 Rx .COMPLEX #30 tabs albuterol sulfate 90 mcg/actuation 2 inh inhalation Q8H PRN shortness 02/16/24 03/30/24 Unknown Rx aerosol inhaler of breath or wheezing #6.7 grams amiodarone 200 mg tablet (Pacerone) 400 mg (2 x 200 mg) PO DAILY #60 02/16/24 03/30/24 Unknown Rx tabs digoxin 125 mcg (0.125 mg) tablet 125 mcg PO DAILY #30 tabs 02/16/24 03/26/24 Unknown Rx lidocaine HCl 4 %-menthol 1 % 1 patch topical DAILY PRN pain #5 02/16/24 03/26/24 Unknown Rx topical patch ea metoprolol tartrate 25 mg tablet 50 mg (2 x 25 mg) PO BID@0900,2100 02/16/24 03/26/24 Unknown Rx #60 tabs Portable O2 concentrator #1 ea 02/27/24 03/30/24 Unknown Rx nicotine 21 mg/24 hr daily 1 patch transdermal DAILY #28 ea 02/29/24 03/26/24 Unknown Rx transdermal patch (Nicoderm CQ) doxycycline hyclate 100 mg capsule 100 mg PO BID #14 caps 03/26/24 03/30/24 Unknown Rx prednisone 10 mg tablet 10 mg PO DAILY #5 tabs 03/26/24 03/26/24 Unknown Rx hydrocodone 5 mg-acetaminophen 325 1 tab PO Q6H PRN pain 1 month #30 03/28/24 Unknown Rx mg tablet tabs fluticasone propionate 50 2 spray intranasal Q12H 03/30/24 03/30/24 Unknown History mcg/actuation nasal spray,suspension Allergies Allergy/AdvReac Type Severity Reaction Status Date / Time No Known Allergies Allergy Verified 03/30/24 17:52 PFSH Acute 2 PFSH: Medical History Pneumonia Atrial fibrillation with rapid ventricular response Fracture of rib Acute respiratory failure with hypoxia and hypercapnia Acute respiratory failure New onset of congestive heart failure Clavicle fracture, sternal end Right shoulder pain Edema Chronic lumbar pain Nocturnal hypoxemia COPD (chronic obstructive pulmonary disease) Prostate cancer Hypertension Atrial fibrillation Social History Smoking and tobacco/nicotine status: never used tobacco/nicotine Vitals/I&O/Wt Last Vital Signs Temp 98.0 F 03/30/24 21:46 Pulse 118 H 03/30/24 21:46 Resp 27 H 03/30/24 21:46 BP 132/98 03/30/24 21:46 Pulse Ox 93 03/30/24 21:46 O2 Del Method Nasal Cannula 03/30/24 21:46 O2 Flow Rate 5 03/30/24 21:06 Weight last 48 hrs Weight 113.398 kg Physical Exam 2 Const: COMMON NORMALS: no acute distress and patient oriented x3 HENMT: COMMON NORMALS: normocephalic HEAD & SCALP: normocephalic Eye: COMMON NORMALS: Equal, round and reactive pupils present and EOMs intact bilaterally Neck/C-Spine: COMMON NORMALS: no JVD Lymph: LYMPHATIC: no lymphadenopathy noted Resp: COMMON NORMALS: normal respiratory effort, No retractions and No use of accessory muscles AUSCULTATION: crackles and wheezes Cardio: COMMON NORMALS: regular rate, regular rhythm, S1 normal heart sound present and S2 normal heart sound present RATE: tachycardic RHYTHM: a bnormal rhythm irregularly irregular HEART SOUNDS: S1 normal heart sound present and S2 normal heart sound present GI: COMMON NORMALS: Normal to inspection, nondistended, normoactive bowel sounds present, Soft to palpation and non-tender Extremity: COMMON NORMALS: no calf tenderness Neuro: COMMON NORMALS: patient oriented x3, CN's II-XII intact bilaterally and moves all extremities Psych: COMMON NORMALS: mental status grossly normal Skin: NARRATIVE SKIN EXAM: 1+ pitting edema bilateral extremity Data 03/30/24 18:11 03/30/24 18:11 A&P Assessment and plan (1) Atrial fibrillation with RVR: (2) Acute respiratory failure with hypoxia: (3) COPD exacerbation: (4) CHF exacerbation: Plan Atrial fibrillation with rapid ventricular response ? Continue home Xarelto -Is currently on Cardizem drip continue ? Digoxin level is low at 0.3, resume home digoxin ? Continue home metoprolol Acute hypoxic hypercarbic respiratory failure ? Secondary to COPD exacerbation ?diastolic CHF exacerbation ? Plan ? Patient reports BiPAP use at home, continue home BiPAP ? Solu-Medrol 40 mg IV push every 8 hours ? Continue DuoNeb ? Continue budesonide ? Continue Rocephin ? Continue Zithromycin ? Monitor respiratory status closely ? Sputum cultures ? Full code ? Xarelto for DVT prophylaxis Diastolic CHF exacerbation -40 mg IV push once -Monitor respiratory status closely Prostate cancer, not in exacerbation Full code Cardiac diet Xarelto for DVT prophylaxis Attestations 2 Medical Necessity Statement*: Patient requires hospitalization, inpatient, greater than 2 midnights for acute hypoxic respiratory failure, COPD, CHF, A-fib with RVR Diagnoses Atrial fibrillation with RVR I48.91 Acute respiratory failure with hypoxia J96.01 COPD exacerbation J44.1 CHF exacerbation I50.9
[2024-03-30] MEDS: azithromycin 500 MG in sodium chloride 0.9% 250 ML 250 MG IV (23:18)
[2024-03-30] MEDS: FUROsemide 10 mg/mL SDV 4mL 40 MG IVP (23:19)
[2024-03-30] MEDS: cefTRIAXone 1,000 mg SDV 1000 MG IVP (23:20)
[2024-03-30] MEDS: pantoprazole 40 mg SDV IVP (23:20)
--- NOTE | 2024-03-30 23:59 | ECG_ITS ---
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 Measurements Intervals [place] Rate: 112 P: 0 SD: 0 QRS: 26 QRSD: 89 T: 56 QT: 352 QTc: 481 Interpretive Statements ATRIAL FIBRILLATION WITH RAPID VENTRICULAR RESPONSE ABNORMAL RHYTHM ECG Compared to ECG 03/30/2024 20:07:22 No significant changes Electronically Signed On 03-31-2024 19:32:44 CDT by Raymond Mix M.D. [id number]
[2024-03-31] VITALS (19 sets, daily range): BP systolic 101–128; BP diastolic 65–78; PULSE 77–114; RESP 12–23; TEMP 36.4–37.1; O2SAT 90–98
[2024-03-31 00:23] LABS: Estmated Average Glucose 137; Hemoglobin A1C 6.4 % (4.0-6.0)
[2024-03-31 00:32] LABS: Troponin 5 6HR 6.73 ng/L (0-15)
[2024-03-31 00:34] LABS: Troponin 5 6HR Delta -3.27 ng/L (0-12)
[2024-03-31 00:39] LABS: Procalcitonin 0.04 ng/mL (0-0.5); Thyroid Stimulating Hormone 1.58 uIU/mL (0.27-4.20)
[2024-03-31 00:50] LABS: C Reactive Protein 3.5 mg/L (0.0-4.9); Chol HDL Ratio 3.49 mg/dL (1.0-5.00); Cholesterol 171 mg/dL (0-200); HDL Cholesterol 49 mg/dL (60-100); LDL Cholesterol Calculated 110 mg/dL (50-129); LDL HDL Ratio 2.24 RATIO (0.00-3.22); Triglycerides 59 mg/dL (0-150)
[2024-03-31] MEDS: ipratropium-albuterol 3 mL Neb INHALATION ×5 (03:42→21:07)
[2024-03-31 04:32] LABS: Basophils % 0.2 %; Hematocrit 48.3 % (37-53); Lymphocytes # 0.6 10^3/uL (0.8-4.8); Lymphocytes % 11.3 %; Mean Corpuscular HGB Conc 30.6 g/dL (30-55); Mean Corpuscular Hemoglobin 31.4 pg (27-33); Mean Corpuscular Volume 102.3 fl (82-101); Mean Platelet Volume 10.8 fL (7.4-10.4); Monocytes # 0.2 10^3/uL (0.2-0.9); Neutrophils # 4.19 10^3/uL (1.8-7.7); Neutrophils % 84.9 %; Nucleated Red Blood Cells % 0 %; Platelet Count 252 10^3/cmm (157-399); Red Blood Count 4.72 10^6/uL (3.85-5.65); Red Cell Distribution Width 14.9 % (12.1-15.1); White Blood Count 4.94 10^3/uL (3.29-11.43)
[2024-03-31 04:55] LABS: Alanine Aminotransferase 11 U/L (0-41); Albumin Level 3.8 g/dL (3.5-5.2); Alkaline Phosphatase 114 U/L (40-130); Anion Gap 13.2 (5-19); Aspartate Amino Transferase 14 U/L (0-40); Blood Urea Nitrogen 25 mg/dL (8-23); Calcium 9.1 mg/dL (8.5-10.5); Carbon Dioxide 36 mmol/L (22-29); Chloride 91 mmol/L (98-107); Creatinine Clr Calc Pharmacy 108.2423; Globulin 3.3 g/dL (1.3-4.6); Glucose 177 mg/dL (65-115); Osmolality Calculated 291 mOsm/kg (285-295); Potassium 4.2 mmol/L (3.5-5.1); Sodium 136 mmol/L (136-145); Total Bilirubin 0.3 mg/dL (0.15-1.2); Total Protein 7.1 g/dL (6.6-8.7)
[2024-03-31] MEDS: dilTIAZem 100 MG in sodium chloride 0.9% (add-van) 100 ML 10 MG IV (05:59)
[2024-03-31] MEDS: gabapentin 300 mg Capsule PO ×3 (08:23→21:22)
[2024-03-31] MEDS: methylPREDNISolone sod succ 40 mg/mL INJ IVP ×2 (08:24→17:53)
[2024-03-31] MEDS: metoprolol tartrate 25 mg Tablet 50 MG PO ×2 (08:24→21:22)
[2024-03-31] MEDS: digoxin 125 mcg Tablet PO (08:24)
[2024-03-31] MEDS: budesonide 0.5 mg/2 mL Neb INHALATION ×2 (09:07→21:08)
--- NOTE | 2024-03-31 12:09 | P.PN_ITS ---
Subjective 2 Subjective: The patient feels like his breathing is improving at this time. He continues to cough. We did discuss his medications and he is not sure what he has been taking. He does not seem to know which meds he is on in general for his A-fib. He is taking Xtandi for his prostate cancer. He does continue to smoke about 1 pack/day. Vitals/I&O/Wt Last Vital Signs Temp 98.7 F 03/31/24 11:21 Pulse 77 03/31/24 11:21 Resp 18 03/31/24 11:21 BP 128/78 03/31/24 11:21 Pulse Ox 94 03/31/24 11:21 O2 Del Method Nasal Cannula 03/31/24 11:21 O2 Flow Rate 5 03/31/24 09:07 FiO2 40 03/31/24 01:12 03/30/24 03/31/24 03/31/24 22:59 06:59 14:59 Intake Total 507 / 507 321.208 / 828.208 504.333 / 504.333 Output Total 1250 / 1250 Balance 507 / 507 -928.792 / -421.792 504.333 / 504.333 Weight last 48 hrs Weight 241 lb 6.4 oz Weight 240 lb Weight 250 lb Physical Exam 2 Narrative: General: Alert and oriented x 3. Using oxygen via nasal cannula Eyes: PERRLA, EOM intact, no discharge. Mouth: No erythema or tonsilar enlargement. No masses noted. Neck: No thyromegaly. No lymphadenopathy. Heart: Regular rate and rhythm. No murmurs. Lungs: Severely decreased air entry bilaterally with moderate bilateral wheezes. No significant crackles or rhonchi present. Abdomen: Soft, non-tender. No hepatosplenomegaly. Extremities: Trace pitting edema. Data 03/31/24 04:18 03/31/24 04:18 A&P Assessment and plan (1) COPD exacerbation: The patient is showing signs of a COPD exacerbation. He is currently on home meds of DuoNeb, budesonide as well as methylprednisolone. We will continue with ceftriaxone and azithromycin for possible coverage of secondary infection. Continue with oxygen via nasal cannula. (2) Hypertension: The patient's blood pressure is under good control with current medications. Continue with current meds. (3) Atrial fibrillation with RVR: The patient's atrial fibrillation is showing signs of improvement and his heart rate is now in the 80s. His Cardizem drip is being titrated down. The digoxin or metoprolol were started back on his home dose. We will continue to titrate him off of the Cardizem drip as possible. Plan The patient was encouraged to quit smoking. I discussed with him that quitting smoking. Would likely help with his overall breathing. He will let us know when he is ready to quit Attestations 2 Medical Necessity Statement*: The patient continues to need inpatient therapy as he is being treated for A-fib with RVR and COPD exacerbation as above. His stay will cross 2 midnights. Coding Level of Care Code Acute Code for [facility] Diagnoses COPD exacerbation J44.1 Hypertension I10 Atrial fibrillation with RVR I48.91
--- NOTE | 2024-03-31 13:12 | PC.NURSE ---
patient reported back pain but he says it chronic and didn't want any paiin medication for it at this time.
--- NOTE | 2024-03-31 17:10 | PC.NURSE ---
diltiazem turned off at 1705. Patient currently in afib with a heart rate of 87. Resting comfortably watching TV. at bedside.
[2024-03-31] MEDS: rivaroxaban 10 mg Tablet 20 MG PO (17:54)
[2024-03-31] MEDS: cefTRIAXone 1,000 mg SDV 1000 MG IVP (21:11)
[2024-03-31] MEDS: pantoprazole 40 mg SDV IVP (21:12)
[2024-03-31] MEDS: azithromycin 500 MG in sodium chloride 0.9% 250 ML 250 MG IV (21:24)
[2024-04-01] VITALS (14 sets, daily range): BP systolic 137–143; BP diastolic 82–93; PULSE 88–98; RESP 14–20; TEMP 36.5–37.2; O2SAT 83–97
[2024-04-01] MEDS: ipratropium-albuterol 3 mL Neb INHALATION ×4 (00:07→11:26)
[2024-04-01] MEDS: methylPREDNISolone sod succ 40 mg/mL INJ IVP ×2 (00:39→07:49)
[2024-04-01 04:18] LABS: Basophils % 0.1 %; Hematocrit 47.5 % (37-53); Lymphocytes # 0.7 10^3/uL (0.8-4.8); Lymphocytes % 8.4 %; Mean Corpuscular HGB Conc 30.9 g/dL (30-55); Mean Corpuscular Volume 103.5 fl (82-101); Mean Platelet Volume 10.2 fL (7.4-10.4); Monocytes # 0.2 10^3/uL (0.2-0.9); Monocytes % 2.4 %; Neutrophils # 7.24 10^3/uL (1.8-7.7); Neutrophils % 88.7 %; Nucleated Red Blood Cells % 0 %; Platelet Count 212 10^3/cmm (157-399); Red Blood Count 4.59 10^6/uL (3.85-5.65); White Blood Count 8.17 10^3/uL (3.29-11.43)
[2024-04-01 04:47] LABS: Alanine Aminotransferase 10 U/L (0-41); Albumin Level 3.9 g/dL (3.5-5.2); Alkaline Phosphatase 107 U/L (40-130); Anion Gap 8.6 (5-19); Aspartate Amino Transferase 13 U/L (0-40); Blood Urea Nitrogen 20 mg/dL (8-23); Carbon Dioxide 38 mmol/L (22-29); Chloride 95 mmol/L (98-107); Creatinine Clr Calc Pharmacy 108.2423; Globulin 3.1 g/dL (1.3-4.6); Glucose 158 mg/dL (65-115); Magnesium 2.1 mg/dL (1.7-2.3); Osmolality Calculated 288 mOsm/kg (285-295); Potassium 5.6 mmol/L (3.5-5.1); Sodium 136 mmol/L (136-145); Total Bilirubin 0.2 mg/dL (0.15-1.2)
[2024-04-01] MEDS: budesonide 0.5 mg/2 mL Neb INHALATION (07:35)
[2024-04-01] MEDS: digoxin 125 mcg Tablet PO (07:49)
[2024-04-01] MEDS: gabapentin 300 mg Capsule PO (07:50)
[2024-04-01] MEDS: metoprolol tartrate 25 mg Tablet 50 MG PO (07:51)
--- NOTE | 2024-04-01 10:09 | PC.CHAP ---
Pastoral Care Encounter/Spiritual Assessment Type of Contact [] Declined court transcriber visit [] Patient/Family/Request visit [] Outpatient visit [] Follow-up visit [] Physician referral [] Code/Alert [x] Routine visit [] Staff referral [] Actively dying [] Patient sleeping [x] Family support [] [] Out of room [] Palliative care [] [] Receiving care in room [] Pre-surgical visit [] Trauma [] Long length of stay [] ICU visit [] Other: Relational/Emotional Strength [x] Patient feels connected with others/family/visitors/staff [] Distress [] Loneliness/isolation [] Abandonment Spirituality of Patient [x] Person of Jahaira [] Attends [employer] of their Jahaira [x] Believes in Prayer [] Reads Bible or Buddhism materials [] There are Spiritual issues to be addressed Manager Documentation Interventions [x] Prayer [x] Active listening [] Non-anxious presence [x] Spiritual/emotional support [] Crisis/trauma care [] Spiritual counseling [] Bereavement support [] Provided bereavement packet [] Provided Bible/devotional materials [] Provided toy/stuffed animal, coloring book to patient or family member [] Provided Communion [] Anointing/[place] [] Salvation [x] Completed spiritual assessment [] Other: Impact on Illness or Injury [] Angry [] Fearful [] Anxious [] Often cries [] Exhaustion [] Unable to work [] Unable to attend baptist [] Unable to walk/stand [] Unable to read [] Unable to drive [] Unable to eat/drink [] Unable to sleep [] Unable to be with family [] Patient intubated [] Other: Summary Time spent with patient 5 min
--- NOTE | 2024-04-01 12:35 | PM.DCS ---
Discharge Providers Date of Admission: 03/30/24 20:56 Date of Discharge: April 01, 2024 Attending Provider at Admission: Kingston Leong MD Attending Provider at Discharge: Liliana Brown MD Primary Care Provider: Tony Shine MD Diagnoses at Discharge Discharge Diagnosis (1) COPD exacerbation: Status: Acute (2) Hypertension: Status: Acute (3) Atrial fibrillation with RVR: Status: Acute Reason for Visit Reason for Visit: SOB Brief History: Dante Doshi is a 69 year old male with a past medical history of prostate cancer with bony metastasis, chronic pain, history of atrial fibrillation on Xarelto, history COPD, current smoker, who presents [facility] due to chest palpitations, shortness of breath, wheezing, lower extremity edema. Currently patient is on a Cardizem drip heart rates in the 120s, atrial fibrillation, he is alert, awake, following all commands, sitting up in the gurney, complaining of shortness of breath, he reports that he has been increasingly short of breath, having increased wheezing, productive cough, no chest pain but having increased palpitation he reports compliance with his A-fib medications, also reporting increased lower extreme edema, no calf pain, no calf swelling, no hemoptysis, Hospital Course Hospital Course He was managed for atrial fibrillation with rapid ventricular rate, was on Cardizem drip. He is rate controlled currently in the 80s and has been started on home medication digoxin and metoprolol. He was also treated for acute hypoxic hypercarbic respiratory failure secondary to COPD exacerbation and CHF exacerbation. Treated with IV antibiotics ceftriaxone and azithromycin, DuoNebs, IV Solu-Medrol. He is doing well, complains of less shortness of breath as compared to admission and able to walk around without respiratory distress. Will discharge him today and to follow-up with PCP in 1 week Physical Exam Narrative: He is alert awake oriented x 3, not in acute distress Chest minimal wheezing bilaterally Cardiovascular normal heart sounds no murmurs Abdomen soft, nontender, nondistended normal bowel sounds Extremities trace pitting edema bilateral lower extremities Discharge Data Studies Completed and Pending Completed Studies During Hospitalization Category Date Time Status XR chest 1V portable [id number] Urgent Exams 03/30/24 17:58 Completed Pending at discharge Category Date Time Status Sputum Culture and Gram Stain Stat Lab 03/30/24 22:40 Results Radiology Impressions Chest X-Ray 03/30/24 17:58 IMPRESSION: No acute cardiopulmonary disease. Laboratory Results WBC 8.17 10^3/uL (3.29-11.43) 04/01/24 04:04 RBC 4.59 10^6/uL (3.85-5.65) 04/01/24 04:04 Hgb 14.70 g/dL (11.27-16.99) 04/01/24 04:04 Hct 47.5 % (37-53) 04/01/24 04:04 MCV 103.5 fl (82-101) H 04/01/24 04:04 MCH 32.0 pg (27-33) 04/01/24 04:04 MCHC 30.9 g/dL (30-55) 04/01/24 04:04 RDW 15.0 % (12.1-15.1) 04/01/24 04:04 Plt Count 212 10^3/cmm (157-399) 04/01/24 04:04 MPV 10.2 fL (7.4-10.4) 04/01/24 04:04 Neut % (Auto) 88.7 % 04/01/24 04:04 Lymph % (Auto) 8.4 % 04/01/24 04:04 [place] % (Auto) 2.4 % 04/01/24 04:04 Eos % (Auto) 0.0 % 04/01/24 04:04 Baso % (Auto) 0.1 % 04/01/24 04:04 Neut # (Auto) 7.24 10^3/uL (1.8-7.7) 04/01/24 04:04 Lymph # (Auto) 0.7 10^3/uL (0.8-4.8) L 04/01/24 04:04 [place] # (Auto) 0.2 10^3/uL (0.2-0.9) 04/01/24 04:04 Eos # (Auto) 0.0 10^3/uL (0.0-0.8) 04/01/24 04:04 Baso # (Auto) 0.0 10^3/uL (0.0-0.1) 04/01/24 04:04 Nucleated RBC % (auto) 0 % 04/01/24 04:04 Nucleated RBCs # 0.0 /100WBC 04/01/24 04:04 Specimen Type Arterial 03/30/24 18:14 Sample Site Brachial, left 03/30/24 18:14 ABG pH 7.37 (7.35-7.45) 03/30/24 18:14 ABG pCO2 67.5 mmHg (35-45) H* 03/30/24 18:14 ABG pO2 58.6 mmHg (80.0-100.0) L 03/30/24 18:14 ABG HCO3 39.0 mmol/L (22-26) H 03/30/24 18:14 ABG O2 Saturation 91.0 03/30/24 18:14 ABG Base Excess 10.4 mmol/L (-2.0-2.0) H 03/30/24 18:14 Jay Test Pos 03/30/24 18:14 A-a O2 Gradient 1.2 mmHg (5-10) L 03/30/24 18:14 Hematocrit 48.1 % (42-52) 03/30/24 18:14 Hgb O2 Saturation 85.5 % (95-100) L 03/30/24 18:14 Carboxyhemoglobin 5.1 %THgb (0.4-20.1) 03/30/24 18:14 Methemoglobin 0.9 % (0.4-1.5) 03/30/24 18:14 Total Hemoglobin 15.7 g/dL (14-18) 03/30/24 18:14 Sodium 137.0 mmol/L (131-143) 03/30/24 18:14 Potassium 4.2 mmol/L (3.5-5.0) 03/30/24 18:14 Glucose 101.0 mg/dL (70-115) 03/30/24 18:14 Ionized Calcium 1.2 mmol/L (1.1-1.4) 03/30/24 18:14 O2 Delivery Device Nc 03/30/24 18:14 O2 Liters/Min 6.0 % 03/30/24 18:14 Promotion Specialist ID Cak 03/30/24 18:14 Sodium 136 mmol/L (136-145) 04/01/24 04:04 Potassium 5.6 mmol/L (3.5-5.1) H 04/01/24 04:04 Chloride 95 mmol/L (98-107) L 04/01/24 04:04 Carbon Dioxide 38 mmol/L (22-29) H 04/01/24 04:04 Anion Gap 8.6 (5-19) 04/01/24 04:04 BUN 20 mg/dL (8-23) 04/01/24 04:04 Creatinine 0.6 mg/dL (0.7-1.2) L 04/01/24 04:04 GFR Calculation Not Reportable 04/01/24 04:04 Glucose 158 mg/dL (65-115) H 04/01/24 04:04 Estimat Average Glucose 137 03/31/24 00:03 Hemoglobin A1c 6.4 % (4.0-6.0) H 03/31/24 00:03 Calculated Osmolality 288 mOsm/kg (285-295) 04/01/24 04:04 Lactic Acid 1.3 mmol/L (0.5-2.2) 03/30/24 18:11 Calcium 9.0 mg/dL (8.5-10.5) 04/01/24 04:04 Magnesium 2.1 mg/dL (1.7-2.3) 04/01/24 04:04 Total Bilirubin 0.2 mg/dL (0.15-1.2) 04/01/24 04:04 AST 13 U/L (0-40) 04/01/24 04:04 ALT 10 U/L (0-41) 04/01/24 04:04 Alkaline Phosphatase 107 U/L (40-130) 04/01/24 04:04 Troponin T Baseline 10 ng/L (0-15) 03/30/24 18:11 Troponin T 120 Minute 7.51 ng/L (0-15) 03/30/24 20:05 Delta Troponin T -2.49 ABS# (0-10) L 03/30/24 20:05 Troponin T Hi Sens 6Hr 6.73 ng/L (0-15) 03/31/24 00:03 Troponin T Hi Sens 6Hr Delta -3.27 ng/L (0-12) L 03/31/24 00:03 C-Reactive Protein 3.5 mg/L (0.0-4.9) 03/31/24 00:03 C-React Prot High Sens 0.220 mg/dL (0.0-0.3) 04/01/24 04:04 NT-Pro-B Natriuret Pep 384 pg/mL (0-125) H 03/30/24 18:11 Total Protein 7.0 g/dL (6.6-8.7) 04/01/24 04:04 Albumin 3.9 g/dL (3.5-5.2) 04/01/24 04:04 Globulin 3.1 g/dL (1.3-4.6) 04/01/24 04:04 Triglycerides 59 mg/dL (0-150) 03/31/24 00:03 Cholesterol 171 mg/dL (0-200) 03/31/24 00:03 LDL Cholesterol, Calc 110 mg/dL (50-129) 03/31/24 00:03 HDL Cholesterol 49 mg/dL (60-100) L 03/31/24 00:03 LDL/HDL Ratio 2.24 RATIO (0.00-3.22) 03/31/24 00:03 Cholesterol/HDL Ratio 3.49 mg/dL (1.0-5.00) 03/31/24 00:03 Procalcitonin 0.04 ng/mL (0-0.5) 03/31/24 00:03 TSH 1.58 uIU/mL (0.27-4.20) 03/31/24 00:03 Urine Color Yellow (Yellow) 03/30/24 18:11 Urine Appearance Clear (CLEAR) 03/30/24 18:11 Urine pH 5 (5-7) 03/30/24 18:11 Ur Specific [place] 1.020 (1.005-1.030) 03/30/24 18:11 Urine Protein 1+ (Negative) H 03/30/24 18:11 Urine Glucose (UA) Norm (Normal) 03/30/24 18:11 Urine Ketones 1+ (Negative) H 03/30/24 18:11 Urine Blood Neg (Negative) 03/30/24 18:11 Urine Nitrate Negative (Negative) 03/30/24 18:11 Urine Bilirubin 1+ (Negative) H 03/30/24 18:11 Urine Urobilinogen 1 mg/dL (Negative) H 03/30/24 18:11 Ur Leukocyte Esterase Negative (Negative) 03/30/24 18:11 Urine RBC 0-4 /hpf (0-2) H 03/30/24 18:11 Urine WBC 0-4 /hpf (0-5) H 03/30/24 18:11 Ur Squamous Epith Cells 0-4 /hpf (0-5) H 03/30/24 18:11 Amorphous Sediment Not Reportable 03/30/24 18:11 Urine Bacteria Trace /hpf (NONE) 03/30/24 18:11 Digoxin 0.3 ng/mL (0.6-1.2) L 03/30/24 18:11 Coronavirus (PCR) Negative (Negative) 03/30/24 18:11 Influenza A (PCR) Negative (Negative) 03/30/24 18:11 Influenza Type B (PCR) Negative (Negative) 03/30/24 18:11 RSV (PCR) Negative (Negative) 03/30/24 18:11 Vitals Last Vital Signs Temp 98.9 F 04/01/24 12:10 Pulse 92 04/01/24 12:10 Resp 19 H 04/01/24 12:10 BP 143/87 04/01/24 12:10 Pulse Ox 90 04/01/24 12:10 O2 Del Method Nasal Cannula 04/01/24 11:27 O2 Flow Rate 4 04/01/24 11:27 FiO2 40 03/31/24 01:12 Discharge Plan Discharge Patient Disposition: Home Condition: Stable Prescriptions: New methylprednisolone [Medrol (Wan)] 4 mg tablets,dose pack See Rx Instructions .ROUTE .COMPLEX Qty: 21 0RF Rx Instructions: for 6 days Continued Xtandi 40 mg tablet 160 mg PO DAILY pyridoxine (vitamin B6) 100 mg tablet 50 mg PO DAILY calcium-vit B complx-FA 115-50-0.4 mg tablet extended release 1 tab PO DAILY nicotine [Nicoderm CQ] 21 mg/24 hr patch 24 hour 1 patch transdermal DAILY Qty: 28 11RF gabapentin 300 mg capsule 300 mg PO TID Qty: 90 11RF furosemide 20 mg tablet See Rx Instructions .ROUTE .COMPLEX Qty: 90 3RF Dose Instruction: TAKE 1 TABLET BY MOUTH EVERY DAY Rx Instructions: TAKE 1 TABLET BY MOUTH EVERY DAY potassium chloride 20 mEq tablet extended release 20 meq PO DAILY Qty: 90 11RF Xarelto 20 mg tablet See Rx Instructions .ROUTE .COMPLEX Qty: 30 11RF Hold Instructions: Resume on 02/19/24. Dose Instruction: TAKE ONE TABLET BY MOUTH EVERY DAY with evening meal Rx Instructions: TAKE ONE TABLET BY MOUTH EVERY DAY with evening meal hydrocodone-acetaminophen 5-325 mg tablet 1 tab PO Q6H PRN (Reason: pain) 30 Days Qty: 30 0RF amiodarone [Pacerone] 200 mg Tablet 400 mg PO DAILY Qty: 60 3RF digoxin 125 mcg (0.125 mg) Tablet 125 mcg PO DAILY Qty: 30 3RF metoprolol tartrate 25 mg Tablet 50 mg PO BID@0900,2100 Qty: 60 3RF albuterol sulfate 90 mcg/actuation HFA aerosol inhaler 2 inh inhalation Q8H PRN (Reason: shortness of breath or wheezing) Qty: 6.7 3RF lidocaine HCl-menthol 4-1 % adhesive patch,medicated 1 patch topical DAILY PRN (Reason: pain) Qty: 5 0RF Rx Instructions: may leave on area for up to 8 hrs fluticasone propionate 50 mcg/actuation [place],Suspension 2 spray INTRANASAL Q12H Rx Instructions: administer into each nostril Discontinued doxycycline hyclate 100 mg capsule 100 mg PO BID Qty: 14 0RF No Action (DME) Portable O2 concentrator See Rx Instructions .Route .MEDSUPPLY Qty: 1 0RF Rx Instructions: 4l/m Discharge Orders: Discharge Order (Routine); Ordered 04/01/24 Ordered By: Liliana Brown Referrals: Marc Smith MD [Physician] - 04/17/24 1:00 pm ([facility] [place]) Tony Shine MD [Primary Care Provider] - 04/09/25 10:10 am (Referal to Pulmanology at time of appointment ) Discharge Diet: Cardiac Discharge Activity: Increase activity as tolerated Patient Instructions: Opioid Safety Discharge Attestations Time Spent in Discharge Care*: less than 30 min Time Spent in Smoking Cessation: 3 to 10 minutes Status at Discharge: Overall status at discharge: patient is progressing back to baseline Quality Metrics Clinical Quality Measures [ No reported AMI, CVA or VTE this stay] Coding Level of Care Code Acute Code for Chg Fwd Diagnoses COPD exacerbation J44.1 Hypertension I10 Atrial fibrillation with RVR I48.91 Time Spent (min) 25
--- NOTE | 2024-04-01 13:06 | PC.NURSE ---
Patient discharged to home. Instruction provided regarding follow up needs and medication changes. Patient verbalized complete understanding. Provided 2nd set of instructions to spouse. Patient taken by wheelchair to private vehicle with spouse and other family at side. IV removed prior to discharge and was intact. Telemetry removed as well.
--- NOTE | 2024-04-01 13:15 | PC.SOCIAL ---
IMM Updated Updated pt on IMM. No questions voiced. Provided pt a copy. Initialed, dated, & timed a copy & placed in chart.
== END 2024-04-01 13:20 | disposition home or self-care (01) | DRG 190 ==
LOC: ER 20:58 → CSU 21:14
PROVIDERS: Family Medicine; Physician Assistant; Admitting Provider Family Medicine; Emergency Provider Emergency Medicine; PCP Family Medicine; Visit Provider Internal Medicine
DX: J44.1 Chronic obstructive pulmonary disease with (acute) exacerbation (principal); I50.33 Acute on chronic diastolic (congestive) heart failure; J96.01 Acute respiratory failure with hypoxia; I11.0 Hypertensive heart disease with heart failure; I48.91 Unspecified atrial fibrillation; Z79.899 Other long term (current) drug therapy; Z79.01 Long term (current) use of anticoagulants; F17.210 Nicotine dependence, cigarettes, uncomplicated; Z85.46 Personal history of malignant neoplasm of prostate; Z85.830 Personal history of malignant neoplasm of bone
CPT/HCPCS: 0241U; 36415; 36600; 71045; 80051; 80053; 80061; 80162; 81001; 82330; 82805; 83036; 83605; 83735; 83880; 84145; 84443; 84484; 85025; 86140; 86141; 87070; 87205; 93005; 94640; 94660; 94664; 94760; 96365; 96366; 96375; 96376; 99285; A9270; J0456; J0696; J1940; J2470; J2919; J3490; J7040; J7050; J7626

== ENCOUNTER → 2024-04-23 14:16 | Outpatient (BNVA) | payer MEDICARE, OTHER, SELFPAY | PROVIDERS: PCP Family Medicine; Visit Provider Family Medicine | DX: R07.9 Chest pain, unspecified (principal); I48.91 Unspecified atrial fibrillation | CPT/HCPCS: 80048; 83880; 84484; 85025 ==

== ENCOUNTER → 2024-04-29 13:33 | Outpatient (BNVA) | payer MEDICARE, OTHER, SELFPAY | PROVIDERS: PCP Family Medicine; Visit Provider Family Medicine | DX: I50.9 Heart failure, unspecified (principal); I48.91 Unspecified atrial fibrillation; J44.9 Chronic obstructive pulmonary disease, unspecified | CPT/HCPCS: 80048; 83735; 83880 ==

== ENCOUNTER → 2024-05-20 12:00 | Outpatient (BNVA) | payer MEDICARE, OTHER, SELFPAY | PROVIDERS: PCP Family Medicine; Visit Provider Family Medicine | DX: N28.89 Other specified disorders of kidney and ureter (principal); I50.9 Heart failure, unspecified | CPT/HCPCS: 80048; 83880 ==

== ENCOUNTER 2024-05-31 14:47 | Outpatient (CLI) | payer MEDICARE, OTHER, SELFPAY ==
--- NOTE | 2024-05-31 15:15 | US_ITS ---
WS: [id number] RENAL ULTRASOUND HISTORY: f/u on CT showing masses in February COMPARISON: CT angiogram 02/12/2024 TECHNIQUE: 2-D and color Doppler imaging of the kidney submitted. Right kidney: 9.4 cm x 5.8 cm x 5.4 cm. Cortex: 1.3 cm Normal echogenicity with no hydronephrosis or mass. Left kidney: 11.5 cm x 5.5 cm x 4.5 cm. Cortex: 1.6 cm Kidney is poorly visualized. No discrete masses are identified. No hydronephrosis. Aorta: Normal. Urinary Bladder: Normal distention. US/US renal BI* [id number] IMPRESSION: 1. Technically limited evaluation of the kidneys to characterize cystic or edmund id masses. This study is not adequate to confirm a solid mass. 2. No hydronephrosis or atrophy. 3. For more complete evaluation of the kidneys concerning the solid mass consi maryan follow-up CT abdomen for renal mass protocol. This would include with and w ithout contrast.
== END 2024-05-31 14:48 | disposition home or self-care (01) ==
LOC: RAD 14:48
PROVIDERS: PCP Family Medicine; Visit Provider Family Medicine
DX: N28.89 Other specified disorders of kidney and ureter (principal)
CPT/HCPCS: 76770

== ENCOUNTER 2024-06-24 09:58 | Outpatient (CLI) | payer MEDICARE, OTHER, SELFPAY ==
--- NOTE | 2024-06-24 10:00 | CT_ITS ---
WS: [id number] CT ABDOMEN WITH AND WITHOUT CONTRAST HISTORY: Indeterminate LEFT renal masses. Renal mass CT protocol recommended. Multiphase imaging through the abdomen with attention to the kidneys prior oral contrast has not been provided. Coronal and sagittal reformats are submitted. All CT scans at [facility] use at le ast one of these dose optimization techniques: automated exposure control; mA and/or kV adjustment pe r patient size (includes targeted exams where dose is matched to clinical indication); or iterative r econstruction. IV CONTRAST: Omnipaque 350; 100 mL IV. Oral contrast: No DLP: 2515.55 mGy.cm COMPARISON: Renal ultrasound 05/31/2024, prior CT 02/12/2024 Lower thorax: Dependent changes at the lung bases and lingula. Heart is very slightly enlarged. No pe ricardial effusion. Small hiatal hernia. Liver/biliary system: Normal size with no intrahepatic dilatation. Gallbladder: Normal. No gallstones or wall thickening. No pericholecystic fluid. Pancreas: Lobulated cystic mass involving the uncinate process of the pancreas. Mass does extend to a but the common bile duct and also the pancreatic duct at the pancreatic head. Mass measures 1.7 x 1.9 cm. May have been present on the prior study but there is less artifact and smaller slice selection on today's exam. There is no pancreatic duct dilatation. Spleen: Normal size spleen. No mass or infarct. Adrenal glands: Normal RIGHT adrenal gland. 2.4 cm LEFT adrenal adenoma. Right kidney: No renal obstruction or calcification. No solid mass. Normal excretion. Left kidney: Normal size kidney. There are multiple low-attenuation masses throughout the the kidney. There is an additional exophytic high density cortical mass measuring 8 mm. No significant enhanceme nt of the high density cortical lesion. Superior pole 11 mm mass does not enhance. Mid renal cortex nonenhancing 17 mm mass. Numerous masses in the lower third of the kidney. None of these masses enhance significantly. Hounsfi eld units are slightly elevated with no enhancement. The largest measures 2.2 cm. There are a few too small to characterize hypodensities. Aorta: Mild atherosclerosis with no aneurysm. Lymphadenopathy: None. Free fluid: None. GI tract: Visualized GI tract within the abdomen demonstrates moderate fecal retention in the transve rse colon. No obstructive pattern. Abdominal wall: Fat containing umbilical hernia. Visualized osseous structures: Degenerative scoliosis lumbar spine. CT/CT abdomen wo/w con [id number] IMPRESSION: 1. Numerous complex cysts in the LEFT kidney. None of these masses enhance sig nificantly to suggest these are solid renal neoplasms. [place] to slightly e levated but do not change with contrast injection. 2. Negative RIGHT kidney. 3. Lobulated cystic mass in the uncinate process of the pancreas measures 1.7 x 1.9 cm. This may have been present on the prior study but obscured by artifac t from the patients arm placement. Differential includes IPMN, serous cystic ne oplasm and cystic pancreatic neoplasm. Continued serial follow-up will be sammi lorenzo. Additional follow-up may include pancreatic MRI with and without contrast . Follow-up CT pancreatic mass protocol in 3 months. PET/CT imaging may be of b enefit also at this time.
[2024-06-24] MEDS: iohexol 350 mg/mL 500 mL Btl (per mL) IV (10:24)
== END 2024-06-24 09:59 | disposition home or self-care (01) ==
PROVIDERS: PCP Family Medicine; Visit Provider Family Medicine
DX: Q61.02 Congenital multiple renal cysts (principal); N28.89 Other specified disorders of kidney and ureter; K86.2 Cyst of pancreas; K44.9 Diaphragmatic hernia without obstruction or gangrene; K42.9 Umbilical hernia without obstruction or gangrene; D35.02 Benign neoplasm of left adrenal gland
CPT/HCPCS: 74170

== ENCOUNTER 2024-07-17 20:00 | Outpatient (CLI) | payer MEDICARE, OTHER, SELFPAY | END 2024-07-17 20:01 | disposition home or self-care (01) | LOC: SLEEP 23:16 | PROVIDERS: PCP Family Medicine; Visit Provider Family Medicine | DX: G47.33 Obstructive sleep apnea (adult) (pediatric) (principal) | CPT/HCPCS: 95811 ==

== ENCOUNTER → 2024-09-05 10:13 | Outpatient (BNVA) | payer MEDICARE, OTHER, SELFPAY | PROVIDERS: PCP Family Medicine; Visit Provider Family Medicine | DX: I50.9 Heart failure, unspecified (principal); I48.91 Unspecified atrial fibrillation; K86.89 Other specified diseases of pancreas; G47.33 Obstructive sleep apnea (adult) (pediatric) | CPT/HCPCS: 80053; 85025; 86140 ==

== ENCOUNTER 2024-10-08 16:22 | Outpatient (CLI) | payer MEDICARE, OTHER, SELFPAY | END 2024-10-08 16:23 | disposition home or self-care (01) | LOC: SLEEP 16:23 | PROVIDERS: PCP Family Medicine; Visit Provider Family Medicine | DX: G47.33 Obstructive sleep apnea (adult) (pediatric) (principal); G47.36 Sleep related hypoventilation in conditions classified elsewhere | CPT/HCPCS: G0399 ==